=== PATIENT | male | born 1950 | race American Indian/Alaskan Native ===

== ENCOUNTER 2017-04-08 14:36 | Emergency (ER) | payer OTHER ==
[2017-04-08 15:00] VITALS: BP 159/19
[2017-04-08 15:52] LABS: Urine Drugs of Abuse Note Disclamer
[2017-04-08 16:36] LABS: Hematocrit 37.6 % (35.5-45.6); Hemoglobin 12.6 gm/dl (11.8-15.2); Mean Corpuscular HGB Conc 34 % (32-34); Mean Corpuscular Hemoglobin 30 pg (28-32); Mean Corpuscular Volume 90 fl (84-94); Platelet Count 162 K/mm3 (140-440); Red Blood Count 4.16 M/mm3 (3.65-5.03); Red Cell Distribution Width 13.2 % (13.2-15.2); White Blood Count 5.8 K/mm3 (4.5-11.0)
[2017-04-08 16:37] LABS: Diff Status Complete; Mean Platelet Volume 9.2 fl (6-12)
[2017-04-08 16:47] LABS: Bilirubin,Urine Negative (Negative); Ketones,Urine Negative (Negative)
[2017-04-08 16:48] LABS: Blood,Urine Negative (Negative); Leukocyte Esterase,Urine Negative (Negative); Nitrite,Urine Negative (Negative)
[2017-04-08 16:49] LABS: Mucus,Urine 3+ /HPF
[2017-04-08 16:52] LABS: Anion Gap 16 mmol/L; Blood Urea Nitrogen 12 mg/dL (9-20); Carbon Dioxide 28 mmol/L (22-30); Chloride 102.5 mmol/L (98-107); Potassium 3.2 mmol/L (3.6-5.0); Sodium 143 mmol/L (137-145)
[2017-04-08 16:53] LABS: Alanine Aminotransferase 16 units/L (7-56); Albumin 3.8 g/dL (3.9-5); Albumin/Globulin Ratio 1.3 %; Alkaline Phosphatase 41 units/L (35-129); Calcium 8.4 mg/dL (8.4-10.2); Glucose 91 mg/dL (75-100); Total Protein 6.7 g/dL (6.3-8.2)
[2017-04-08 16:54] LABS: Basophils % (Auto) 0.4 % (0.0-1.8)
--- NOTE | 2017-04-12 07:56 | ED Elopement Review ---
ED Pt Elopement review - Results review Lab results: Laboratory Tests 04/08/17 04/08/17 04/08/17 14:55 15:11 15:11 WBC 5.8 RBC 4.16 Hgb 12.6 Hct 37.6 MCV 90 MCH 30 MCHC 34 RDW 13.2 Plt Count 162 Lymph % (Auto) 27.0 [place] % (Auto) 7.0 Eos % (Auto) 2.0 Baso % (Auto) 0.4 Lymph # 1.5 [place] # 0.4 Eos # 0.1 Baso # 0.0 Add Manual Diff Complete Seg Neutrophils % 64.0 Seg Neutrophils # 3.7 Sodium 143 Potassium 3.2 L Chloride 102.5 Carbon Dioxide 28 Anion Gap 16 BUN 12 Creatinine 1.1 Estimated GFR > 60 BUN/Creatinine Ratio 11.00 Glucose 91 POC Glucose 86 Lactic Acid Calcium 8.4 Magnesium 1.80 Total Bilirubin 0.90 AST 21 ALT 16 Alkaline Phosphatase 41 Total Protein 6.7 Albumin 3.8 L Albumin/Globulin Ratio 1.3 TSH Urine Color Urine Turbidity Urine pH Ur Specific [place] Urine Protein Urine Glucose (UA) Urine Ketones Urine Blood Urine Nitrite Urine Bilirubin Urine Urobilinogen Ur Leukocyte Esterase Urine WBC (Auto) Urine RBC (Auto) U Epithel Cells (Auto) Urine Mucus Salicylates Urine Opiates Screen Urine Methadone Screen Acetaminophen Ur Barbiturates Screen Ur Phencyclidine Scrn Ur Amphetamines Screen U Benzodiazepines Scrn Urine Cocaine Screen U Marijuana (THC) Screen Drugs of Abuse Note Plasma/Serum Alcohol 04/08/17 04/08/17 04/08/17 15:11 15:11 15:11 WBC RBC Hgb Hct MCV MCH MCHC RDW Plt Count Lymph % (Auto) [place] % (Auto) Eos % (Auto) Baso % (Auto) Lymph # [place] # Eos # Baso # Add Manual Diff Seg Neutrophils % Seg Neutrophils # Sodium Potassium Chloride Carbon Dioxide Anion Gap BUN Creatinine Estimated GFR BUN/Creatinine Ratio Glucose POC Glucose Lactic Acid 0.50 L Calcium Magnesium Total Bilirubin AST ALT Alkaline Phosphatase Total Protein Albumin Albumin/Globulin Ratio TSH 0.899 Urine Color Urine Turbidity Urine pH Ur Specific [place] Urine Protein Urine Glucose (UA) Urine Ketones Urine Blood Urine Nitrite Urine Bilirubin Urine Urobilinogen Ur Leukocyte Esterase Urine WBC (Auto) Urine RBC (Auto) U Epithel Cells (Auto) Urine Mucus Salicylates < 0.3 L Urine Opiates Screen Urine Methadone Screen Acetaminophen Ur Barbiturates Screen Ur Phencyclidine Scrn Ur Amphetamines Screen U Benzodiazepines Scrn Urine Cocaine Screen U Marijuana (THC) Screen Drugs of Abuse Note Plasma/Serum Alcohol 04/08/17 04/08/17 04/08/17 15:11 15:11 15:31 WBC RBC Hgb Hct MCV MCH MCHC RDW Plt Count Lymph % (Auto) [place] % (Auto) Eos % (Auto) Baso % (Auto) Lymph # [place] # Eos # Baso # Add Manual Diff Seg Neutrophils % Seg Neutrophils # Sodium Potassium Chloride Carbon Dioxide Anion Gap BUN Creatinine Estimated GFR BUN/Creatinine Ratio Glucose POC Glucose Lactic Acid Calcium Magnesium Total Bilirubin AST ALT Alkaline Phosphatase Total Protein Albumin Albumin/Globulin Ratio TSH Urine Color Yellow Urine Turbidity Clear Urine pH 5.0 Ur Specific [place] 1.027 Urine Protein 30 mg/dl Urine Glucose (UA) Negative Urine Ketones Negative Urine Blood Negative Urine Nitrite Negative Urine Bilirubin Negative Urine Urobilinogen 2.0 Ur Leukocyte Esterase Negative Urine WBC (Auto) 1.0 Urine RBC (Auto) 1.0 U Epithel Cells (Auto) 1.0 Urine Mucus 3+ Salicylates Urine Opiates Screen Urine Methadone Screen Acetaminophen < 15.0 Ur Barbiturates Screen Ur Phencyclidine Scrn Ur Amphetamines Screen U Benzodiazepines Scrn Urine Cocaine Screen U Marijuana (THC) Screen Drugs of Abuse Note Plasma/Serum Alcohol < 0.01 04/08/17 04/08/17 15:31 19:54 WBC RBC Hgb Hct MCV MCH MCHC RDW Plt Count Lymph % (Auto) [place] % (Auto) Eos % (Auto) Baso % (Auto) Lymph # [place] # Eos # Baso # Add Manual Diff Seg Neutrophils % Seg Neutrophils # Sodium Potassium Chloride Carbon Dioxide Anion Gap BUN Creatinine Estimated GFR BUN/Creatinine Ratio Glucose POC Glucose Lactic Acid 0.60 L Calcium Magnesium Total Bilirubin AST ALT Alkaline Phosphatase Total Protein Albumin Albumin/Globulin Ratio TSH Urine Color Urine Turbidity Urine pH Ur Specific [place] Urine Protein Urine Glucose (UA) Urine Ketones Urine Blood Urine Nitrite Urine Bilirubin Urine Urobilinogen Ur Leukocyte Esterase Urine WBC (Auto) Urine RBC (Auto) U Epithel Cells (Auto) Urine Mucus Salicylates Urine Opiates Screen Presumptive negative Urine Methadone Screen Presumptive negative Acetaminophen Ur Barbiturates Screen Presumptive negative Ur Phencyclidine Scrn Presumptive negative Ur Amphetamines Screen Presumptive negative U Benzodiazepines Scrn Presumptive negative Urine Cocaine Screen Presumptive negative U Marijuana (THC) Screen Presumptive negative Drugs of Abuse Note Disclamer Plasma/Serum Alcohol - Call Back decision Pt Call Back Decision: Pt to F/U with PMD (HTN)
== END 2017-04-08 19:59 | disposition left against medical advice (07) ==
LOC: ED 14:36
DX: R41.82 Altered mental status, unspecified (principal); Z53.21 Procedure and treatment not carried out due to patient leaving prior to being seen by health care provider
CPT/HCPCS: 36415; 80053; 80307; 81001; 82140; 82962; 83735; 84443; 85025; 93005; 93010; G0480; 80320

== ENCOUNTER 2020-07-18 16:44 | Inpatient (IN) | payer MEDICARE, OTHER ==
[2020-07-18 17:04] LABS: Basophils # (Auto) 0.1 K/mm3 (0.0-0.1); Basophils % (Auto) 0.5 % (0.0-1.8); Hematocrit 40.7 % (35.5-45.6); Hemoglobin 13.8 gm/dl (11.8-15.2); Lymphocytes # (Auto) 0.5 K/mm3 (1.2-5.4); Lymphocytes % (Auto) 4.5 % (13.4-35.0); Mean Corpuscular HGB Conc 34 % (32-34); Mean Corpuscular Volume 89 fl (84-94); Monocytes # (Auto) 0.6 K/mm3 (0.0-0.8); Monocytes % (Auto) 5.2 % (0.0-7.3); Platelet Count 184 K/mm3 (140-440); Red Blood Count 4.57 M/mm3 (3.65-5.03); Red Cell Distribution Width 13.8 % (13.2-15.2)
--- NOTE | 2020-07-18 17:12 | Cat Scan Report ---
CT HEAD WITHOUT CONTRAST INDICATION / CLINICAL INFORMATION: neuro deficits <6hrs or sx present upon awakening. Code stroke patient TECHNIQUE: All CT scans at this location are performed using CT dose reduction for ALARA by means of automated e xposure control. COMPARISON: None available. FINDINGS: HEMORRHAGE: No evidence of intracranial hemorrhage or extra-axial fluid collection. EXTRA-AXIAL SPACES: Cortical sulci and sylvian fissures are enlarged reflecting a degree of parenchym al volume loss which is greater than expected for the patient's age of . Basilar cisterns have an unr emarkable appearance. VENTRICULAR SYSTEM: The third and lateral ventricles are enlarged reflecting presence of moderate par enchymal volume loss. CEREBRAL PARENCHYMA: Periventricular and deep white matter lucency is observed. This is probably seco ndary to microvascular ischemic change. There is no indication of recent infarction. There is evidenc e of several remote small deep infarctions in a bilateral gangliocapsular distribution. Bilateral rem ote small deep thalamic infarctions are observed. Asymmetrical physiological calcification of the bas al ganglia structures is noted. MIDLINE SHIFT OR HERNIATION: There is no mass effect. CEREBELLUM / BRAINSTEM: Decreased attenuation in the jeff likely reflects microvascular ischemic ko ge. Pontine infarction cannot be entirely excluded. MIDLINE STRUCTURES:Pituitary gland has an unremarkable appearance. No abnormalities are seen in the p ineal region. INTRACRANIAL VESSELS:Calcified atherosclerotic plaque is present along the course of the cavernous se gments of both internal carotid arteries. Similar findings are seen at the distal vertebral arteries. ORBITS: visualized portions of the orbits have an unremarkable appearance. Moderate dolichoectasia of the basilar artery is observed. SOFT TISSUES of HEAD: No significant abnormality. CALVARIUM: Evaluation of bone windows reveals no abnormalities. PARANASAL SINUSES / MASTOID AIR CELLS: Paranasal sinuses are free from inflammatory mucosal disease. Mastoid air cells are normally pneumatized. IMPRESSION: 1. Prominent parenchymal volume loss and microvascular ischemic change in excess of those expected fo r the patient's age of 69 years. 2. 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 3. No acute intracranial abnormalities are identified. 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 Signer Name: Dean Germain MD Signed: 07/18/2020 5:08 PM Workstation Name: [id number]
[2020-07-18 17:16] LABS: INR 1.1 (0.87-1.13)
[2020-07-18 17:17] LABS: Partial Thromboplastin Time 28.4 Sec. (24.2-36.6)
--- NOTE | 2020-07-18 17:19 | Emergency Department Report ---
ED Neuro Deficit HPI - General Chief Complaint: Altered Mental Status Stated Complaint: STROKE Time Seen by Provider: 07/18/20 17:05 Source: family, EMS Mode of arrival: Ambulatory Limitations: No Limitations - History of Present Illness Initial Comments: [facility] Date of Service: 07/18/2020 16:43:40 Impression: Rule Out Acute Ischemic Stroke Encephalopathy Comments/Sign-Out: John Linda is a 69 yo male with a PMH of possible SAH with obstructive hydrocephalus in the past, HTN, TIAs who p/w progressive ataxia, generalized weakness, aphasia. LNK was Tuesday AM. Limited exam, pt is nonverbal, nonfollowing commands, globally weak. CTH NAF noted, extensive chronic ischemic changes noted. He is out of the therapeutic window for consideration of ALVAREZ and alteplase (as well as possible h/o ICH). Exam suggestive of global cerebral dysfunction, cannot exclude stroke. Mechanism of Stroke: Not Clear Metrics: Last Known Well: 07/16/2020 08:00:01 [facility] Notification Time: 07/18/2020 16:43:25 Arrival Time: 07/18/2020 16:44:00 Stamp Time: 07/18/2020 16:43:40 Time First Login Attempt: 07/18/2020 16:47:25 Video Start Time: 07/18/2020 16:47:25 Symptoms: AMS, weakness NIHSS Start Assessment Time: 07/18/2020 17:00:00 Patient is not a candidate for Alteplase/Activase. Patient was not deemed candidate for Alteplase/Activase thrombolytics because of Last Well Known Above 4.5 Hours. Video End Time: 07/18/2020 17:10:13 CT head showed no acute hemorrhage or acute core infarct. ED Physician notified of diagnostic impression and management plan on 07/18/2020 17:10:15 Our recommendations are outlined below. Recommendations: Activate Stroke Protocol Admission/Order Set Stroke/Telemetry Floor Neuro Checks Bedside Swallow Eval DVT Prophylaxis IV Fluids, Normal Saline Head of Bed 30 Degrees Euglycemia and Avoid Hyperthermia (PRN Acetaminophen) Initiate Aspirin 81 MG Daily ASA 325mg vs MD dose in ED Routine Consultation with Inhouse Neurology for Follow up Care Sign Out: Discussed with Emergency Department Provider History of Present Illness: Patient is a 69 year old Male. Patient was brought by EMS for symptoms of AMS, weakness John Linda is a 69 yo male with a PMH of possible SAH with obstructive hydrocephalus in the past, HTN, TIAs who p/w progressive ataxia, generalized weakness, aphasia. LNK was Tuesday AM, 2 days prior. Per his Tuesday evening he was unable to stand per normal. She took him to [facility] he was admitted overnight. He was diagnosed with progressive dementia. Since Tuesday he has had a progressive decline with increasing weakness, aphasia, dysphagia. Febrile at home. Last seen normal was beyond 4.5 hours of presentation. Past Medical History: Examination: BP(Reviewed), NIHSS cannot be completed due to patient status. Patient/Family was informed the Neurology Consult would happen via TeleHealth consult by way of interactive audio and video telecommunications and consented to receiving care in this manner. Due to the immediate potential for life-threatening deterioration due to underlying acute neurologic illness, I spent 35 minutes providing critical care. This time includes time for face to face visit via telemedicine, review of medical records, imaging studies and discussion of findings with providers, the patient and/or family. Dr Ashlee Kwan [facility] Case [id number] -: Gradual - Related Data Allergies/Adverse Reactions: Allergies Allergy/AdvReac Type Severity Reaction Status Date / Time No Known Allergies Allergy Unverified 04/08/17 14:49 ED Review of Systems ROS: Stated complaint: STROKE Other details as noted in HPI ED Past Medical Hx - Past Medical History Previous Medical History?: Yes Hx Hypertension: Yes Additional medical history: tia - Surgical History Past Surgical History?: No - Social History Smoking Status: Unknown if ever smoked Substance Use Type: None ED Neuro Physical Exam - General Limitations: Altered Mental Status Suspected Stroke: Yes - NIHSS Assessment Interval: Baseline 1a. Level of Consciousness: resp stimuli/obtunded 1b. LOC Questions: aphasic 1c. LOC Commands: performs no tasks correctly 2. Best Gaze: normal 3. Visual: no visual loss 4. Facial Palsy: normal symmetrical movement 5b. Motor Arm Right: some gravity effort 5a. Motor Arm Left: some gravity effort 6a. Motor Leg Left: no movement 6b. Motor Leg Right: no movement 7. Limb Ataxia: absent 8. Sensory: normal 9. Best Language: mute/global aphasia 10. Dysarthria: mute/anarrthric 11. Extinction/Inattention: no abnormality (Unable to complete NIHSS) Total Score: 23 Stroke Severity: Severe Stroke ED Course Vital Signs 07/18/20 17:08 Temperature 102.7 F H Pulse Rate 120 H Respiratory 16 Rate Blood Pressure 200/125 O2 Sat by Pulse 100 Oximetry - Lab Data Result diagrams: 07/18/20 16:57 Lab Results 07/18/20 07/18/20 Range/Units 16:57 16:57 WBC 11.9 H (4.5-11.0) K/mm3 RBC 4.57 (3.65-5.03) M/mm3 Hgb 13.8 (11.8-15.2) gm/dl Hct 40.7 (35.5-45.6) % MCV 89 (84-94) fl MCH 30 (28-32) pg MCHC 34 (32-34) % RDW 13.8 (13.2-15.2) % Plt Count 184 (140-440) K/mm3 Lymph % (Auto) 4.5 L (13.4-35.0) % [place] % (Auto) 5.2 (0.0-7.3) % Eos % (Auto) 0.0 (0.0-4.3) % Baso % (Auto) 0.5 (0.0-1.8) % Lymph # 0.5 L (1.2-5.4) K/mm3 [place] # 0.6 (0.0-0.8) K/mm3 Eos # 0.0 (0.0-0.4) K/mm3 Baso # 0.1 (0.0-0.1) K/mm3 Seg Neutrophils % 89.8 H (40.0-70.0) % Seg Neutrophils # 10.6 H (1.8-7.7) K/mm3 PT 14.3 (12.2-14.9) Sec. INR 1.10 (0.87-1.13) Critical care attestation.: If time is entered above; I have spent that time in minutes in the direct care of this critically ill patient, excluding procedure time. ED Disposition Clinical Impression: AMS (altered mental status) Disposition: PAT REG,TRIAGED-NO MSE Is pt being admited?: Yes Condition: Stable
[2020-07-18] MEDS ORDERED: ACETAMINOPHEN 650 MG RECT SUPP PR ONE (17:20)
[2020-07-18] MEDS ORDERED: cefTRIAXone/NS 1 GM/50 ML 1 GM/50 ML BAG IV ONE (17:20)
[2020-07-18 17:21] LABS: BUN/Creatinine Ratio 13; Blood Urea Nitrogen 16 mg/dL (9-20); Calcium 8.6 mg/dL (8.4-10.2); Hemolysis Index 2
[2020-07-18] MEDS ORDERED: SODIUM CHLORIDE 0.9% 1000 ML 1,000 ML IV ONE (17:24)
--- NOTE | 2020-07-18 17:24 | Emergency Department Report ---
HPI - General Time Seen by Provider: 07/18/20 17:05 - HPI HPI: Room 25 The patient is a 69-year-old male present with a chief complaint of altered mental status. The patient reportedly has not been behaving like himself for the past 3 days. The patient was taken to an outside hospital and evaluated and diagnosed with a diagnosis of progression of dementia. The patient has become progressively worse since this discharge and is currently not speaking. Patient normally is able to answer questions and speak at his baseline. ED Past Medical Hx - Past Medical History Previous Medical History?: Yes Hx Hypertension: Yes Additional medical history: tia - Surgical History Past Surgical History?: No - Family History Family history: no significant - Social History Smoking Status: Unknown if ever smoked Substance Use Type: None ED Review of Systems ROS: Stated complaint: STROKE Other details as noted in HPI Comment: Unobtainable due to pts medical conditions Physical Exam - Physical Exam Vital Signs: Vital Signs 07/18/20 17:08 Temperature 102.7 F H Pulse Rate 120 H Respiratory 16 Rate Blood Pressure 200/125 O2 Sat by Pulse 100 Oximetry Physical Exam: GENERAL: The patient is well-developed well-nourished male lying on stretcher occasionally making eye contact but not speaking. [] HEENT: Normocephalic. Atraumatic. Extraocular motions are intact. Patient has moist mucous membranes. NECK: Supple. Trachea midline CHEST/LUNGS: Clear to auscultation. There is no respiratory distress noted. HEART/CARDIOVASCULAR: Regular. There is tachycardia. There is no gallop rub or murmur. ABDOMEN: Abdomen is soft, nontender. Patient has normal bowel sounds. There is no abdominal distention. SKIN: There is no rash. There is no edema. There is no diaphoresis. NEURO: The patient is awake and occasionally makes eye contact however the patient does not answer questions or follow commands. MUSCULOSKELETAL: There is no evidence of acute injury. ED Course Vital Signs 07/18/20 17:08 Temperature 102.7 F H Pulse Rate 120 H Respiratory 16 Rate Blood Pressure 200/125 O2 Sat by Pulse 100 Oximetry ED Medical Decision Making - Lab Data Result diagrams: 07/18/20 16:57 07/18/20 17:24 - Radiology Data Radiology results: report reviewed (Chest x-ray), image reviewed (Chest x-ray) interpreted by me: Chest [id number] haziness. No foreign bodies. No pneumothorax Findings [facility] [address] [place] [address] XRay Report Signed Patient: BEATRIZ ROSS MR#: [id number] 15 : 1950 Acct:[id number] Age/Sex: 69 / M ADM Date: 07/18/20 Loc: ED Attending Dr: Ordering Physician: TERRI CORBIN MD Date of Service: 07/18/20 Procedure(s): XR c hest 1V ap Accession Number(s): [id number] cc: TERRI CORBIN MD Fluoro Time In Minutes: Chest single view INDICATION: Fever IMPRESSION: Patchy bibasilar airspace opacity within both lower lung suspicious for pneumonia. Signer Name: Wilfredo Hobson MD Signed: 07/18/2020 6:28 PM Workstation Name: [id number] Transcribed By: BC Dictated By: Wilfredo Hobson MD Electronically Authenticated By: Wilfredo Hobson MD Signed Date/Time: 07/18/201827 DD/ 27 TD/TT: - Differential Diagnosis Sepsis, ICH, altered mental status Critical care attestation.: If time is entered above; I have spent that time in minutes in the direct care of this critically ill patient, excluding procedure time. ED Disposition Clinical Impression: AMS (altered mental status), Fever, Bilateral pneumonia Disposition: OP ADMIT IP TO THIS HOSP Is pt being admited?: Yes Does the pt Need Aspirin: Yes Condition: Stable Instructions: Bacterial Pneumonia (ED) Time of Disposition: 18:46 (Hospitalist paged (Dr Leach))
[2020-07-18 17:51] LABS: Alanine Aminotransferase 27 units/L (7-56); BUN/Creatinine Ratio 13; Blood Urea Nitrogen 16 mg/dL (9-20); Calcium 8.7 mg/dL (8.4-10.2)
[2020-07-18 17:52] LABS: Hemolysis Index 93
--- NOTE | 2020-07-18 18:32 | XRay Report ---
Chest single view INDICATION: Fever IMPRESSION: Patchy bibasilar airspace opacity within both lower lung suspicious for pneumonia. Signer Name: Wilfredo Hobson MD Signed: 07/18/2020 6:28 PM Workstation Name: [id number]
[2020-07-18] MEDS ORDERED: AZITHROMYCIN 500 MG in SODIUM CHLORIDE 0.9% 250ML 250 ML IV ONE (18:45)
[2020-07-18] MEDS ORDERED: ASPIRIN 300 MG RECT SUPP PR ONE (18:46)
[2020-07-18 18:58] LABS: Hematocrit 37.9 % (35.5-45.6); Hemoglobin 12.7 gm/dl (11.8-15.2); Mean Corpuscular HGB Conc 33 % (32-34); Mean Corpuscular Volume 90 fl (84-94); Platelet Count 175 K/mm3 (140-440); Red Blood Count 4.22 M/mm3 (3.65-5.03)
[2020-07-18 19:43] LABS: Basophils % (Manual) 0 % (0.0-1.8); Eosinophils % (Manual) 0 % (0.0-4.3); RBC Morphology Normal; Total Cells Counted 100
[2020-07-18 19:46] LABS: C-Reactive Protein 18.1 mg/dL (0.00-1.30)
[2020-07-18] MEDS ORDERED: ONDANSETRON 4 MG/2 ML INJ IV PRN (23:20)
[2020-07-18] MEDS ORDERED: MAGNESIUM HYDROXIDE (MOM) ORAL LIQD UDC PO PRN (23:20)
[2020-07-18] MEDS ORDERED: MORPHINE 2 MG/1 ML INJ IV PRN (23:20)
--- NOTE | 2020-07-18 23:29 | History and Physical Report ---
History of Present Illness Date of examination: 07/18/20 Date of admission: 07/18/20 21:29 Chief complaint: Altered Mental Status History of present illness: Patient is a 69-year-old male was brought in today for changes in mental status. Patient has not been his normal self over the past 3 days. He was recently seen at an outside hospital and was diagnosed with worsening dementia. His condition has gotten worse since being diagnosed with dementia and is currently become nonverbal. Most of the history was gotten from the ER physician as patient is unable to give me any good history at this time. Upon arrival in the emergency room patient was found to be tachycardic, he had a fever of about 102.7 F. Further work-up reveals bibasilar infiltrate on chest x-ray. CT scan of the head was within normal limits. Patient is being treated for pneumonia and will also be ruled out for possible COVID-19. Past History Past Medical History: hypertension, other (TIA) Past Surgical History: No surgical history Social history: no significant social history Family history: other (Unknown) Medications and Allergies Allergies Allergy/AdvReac Type Severity Reaction Status Date / Time No Known Allergies Allergy Unverified 04/08/17 14:49 Review of Systems ROS unobtainable: due to mental status Exam - Constitutional Vitals: Temp Pulse Resp BP Pulse Ox 102.7 F H 86 16 136/84 96 07/18/20 17:08 07/18/20 18:43 07/18/20 18:43 07/18/20 18:43 07/18/20 18:43 General appearance: Present: no acute distress, well-nourished - EENT Eyes: Present: PERRL, EOM intact. Absent: scleral icterus ENT: hearing intact, clear oral mucosa, dentition normal - Neck Neck: Present: supple, normal ROM - Respiratory Respiratory effort: normal Respiratory: bilateral: diminished - Cardiovascular Rhythm: regular Heart Sounds: Present: S1 & S2. Absent: gallop, systolic murmur, diastolic murmur, rub - Extremities Extremities: no ischemia, pulses intact, pulses symmetrical, No edema, Full ROM Peripheral Pulses: within normal limits - Abdominal General gastrointestinal: Present: soft, non-tender, non-distended, normal bowel sounds. Absent: mass - Integumentary Integumentary: Present: clear, warm, dry - Musculoskeletal Musculoskeletal: strength equal bilaterally - Psychiatric Psychiatric: cooperative, other (Lethargic and mildly confused.) - Neurologic Neurologic: CNII-XII intact, no focal deficits, moves all extremities HEART Score - HEART Score Troponin: Troponin T < 0.010 ng/mL (0.00-0.029) 07/18/20 16:57 Results - Labs CBC & Chem 7: 07/18/20 18:03 07/18/20 18:55 Labs: Abnormal lab results 07/18/20 07/18/20 07/18/20 Range/Units 16:57 16:57 17:24 WBC 11.9 H (4.5-11.0) K/mm3 Lymph % (Auto) 4.5 L (13.4-35.0) % Lymph # 0.5 L (1.2-5.4) K/mm3 Seg Neutrophils % 89.8 H (40.0-70.0) % Seg Neuts % (Manual) (40.0-70.0) % Lymphocytes % (Manual) (13.4-35.0) % Monocytes % (Manual) (0.0-7.3) % Seg Neutrophils # 10.6 H (1.8-7.7) K/mm3 Seg Neutrophils # Man (1.8-7.7) K/mm3 Lymphocytes # (Manual) (1.2-5.4) K/mm3 Monocytes # (Manual) (0.0-0.8) K/mm3 D-Dimer (0-234) ng/mlDDU Potassium 3.4 L (3.6-5.0) mmol/L Glucose 139 H 130 H (75-100) mg/dL POC Glucose (70-105) Ferritin (30.0-300.0) ng/mL Total Bilirubin 1.30 H (0.1-1.2) mg/dL AST 45 H (5-40) units/L Lactate Dehydrogenase (91-180) units/L C-Reactive Protein (0.00-1.30) mg/dL 07/18/20 07/18/20 07/18/20 Range/Units 17:37 18:03 18:55 WBC 13.6 H (4.5-11.0) K/mm3 Lymph % (Auto) (13.4-35.0) % Lymph # (1.2-5.4) K/mm3 Seg Neutrophils % (40.0-70.0) % Seg Neuts % (Manual) 84.0 H (40.0-70.0) % Lymphocytes % (Manual) 7.0 L (13.4-35.0) % Monocytes % (Manual) 9.0 H (0.0-7.3) % Seg Neutrophils # (1.8-7.7) K/mm3 Seg Neutrophils # Man 11.4 H (1.8-7.7) K/mm3 Lymphocytes # (Manual) 1.0 L (1.2-5.4) K/mm3 Monocytes # (Manual) 1.2 H (0.0-0.8) K/mm3 D-Dimer (0-234) ng/mlDDU Potassium (3.6-5.0) mmol/L Glucose 124 H (75-100) mg/dL POC Glucose 133 H (70-105) Ferritin (30.0-300.0) ng/mL Total Bilirubin (0.1-1.2) mg/dL AST (5-40) units/L Lactate Dehydrogenase 346 H (91-180) units/L C-Reactive Protein 18.10 H (0.00-1.30) mg/dL 07/18/20 07/18/20 Range/Units 18:55 18:55 WBC (4.5-11.0) K/mm3 Lymph % (Auto) (13.4-35.0) % Lymph # (1.2-5.4) K/mm3 Seg Neutrophils % (40.0-70.0) % Seg Neuts % (Manual) (40.0-70.0) % Lymphocytes % (Manual) (13.4-35.0) % Monocytes % (Manual) (0.0-7.3) % Seg Neutrophils # (1.8-7.7) K/mm3 Seg Neutrophils # Man (1.8-7.7) K/mm3 Lymphocytes # (Manual) (1.2-5.4) K/mm3 Monocytes # (Manual) (0.0-0.8) K/mm3 D-Dimer > 27496 H (0-234) ng/mlDDU Potassium (3.6-5.0) mmol/L Glucose (75-100) mg/dL POC Glucose (70-105) Ferritin 899.4 H (30.0-300.0) ng/mL Total Bilirubin (0.1-1.2) mg/dL AST (5-40) units/L Lactate Dehydrogenase (91-180) units/L C-Reactive Protein (0.00-1.30) mg/dL Assessment and Plan - Patient Problems (1) Bilateral pneumonia Current Visit: Yes Status: Acute Plan to address problem: Patient placed on empiric IV antibiotics. We await blood culture result. (2) AMS (altered mental status) Current Visit: Yes Status: Acute Plan to address problem: Possibly secondary to the underlying pneumonia. Patient also has a baseline history of dementia. We will continue to monitor mental status. (3) Suspected 2019 novel coronavirus infection Current Visit: Yes Status: Acute Plan to address problem: Patient placed on isolation precautions. We will place a consult to infectious disease for evaluation and recommendation. (4) DVT prophylaxis Current Visit: Yes Status: Acute Plan to address problem: Patient placed on subcutaneous heparin. (5) Full code status Current Visit: Yes Status: Acute
[2020-07-19] MEDS: SODIUM CHLORIDE 0.9% 1000 ML 1,000 ML IV SCH ×2 (02:18→13:21)
[2020-07-19 06:00] LABS: INR 1.21 (0.87-1.13)
[2020-07-19 06:02] LABS: Basophils % (Auto) 0.2 % (0.0-1.8); Hematocrit 37.5 % (35.5-45.6); Hemoglobin 12.6 gm/dl (11.8-15.2); Lymphocytes # (Auto) 1.1 K/mm3 (1.2-5.4); Lymphocytes % (Auto) 9.7 % (13.4-35.0); Mean Corpuscular HGB Conc 34 % (32-34); Mean Corpuscular Volume 90 fl (84-94); Monocytes # (Auto) 0.9 K/mm3 (0.0-0.8); Monocytes % (Auto) 7.5 % (0.0-7.3); Platelet Count 140 K/mm3 (140-440); Red Blood Count 4.18 M/mm3 (3.65-5.03); Red Cell Distribution Width 13.8 % (13.2-15.2)
[2020-07-19 07:04] LABS: BUN/Creatinine Ratio 14; Blood Urea Nitrogen 14 mg/dL (9-20); Hemolysis Index 7
[2020-07-19] MEDS ORDERED: AZITHROMYCIN 500 MG in SODIUM CHLORIDE 0.9% 250ML 250 ML IV SCH (10:00)
[2020-07-19] MEDS: cefTRIAXone/NS 2 GM/100 ML 2 GM/100 ML BAG IV SCH (10:43)
[2020-07-19] MEDS: HEPARIN 5,000 UNIT/1 ML VIAL SUB-Q SCH ×2 (13:20→22:05)
--- NOTE | 2020-07-19 13:35 | Progress Note ---
Assessment and Plan Assessment and plan: -- Bilateral pneumonia Current Visit: Yes Status: Acute Plan to address problem: Patient placed on empiric IV antibiotics. We await blood culture result. -- AMS (altered mental status) Current Visit: Yes Status: Acute Plan to address problem: Possibly secondary to the underlying pneumonia. Patient also has a baseline history of dementia. We will continue to monitor mental status. -- Suspected 2019 novel coronavirus infection Current Visit: Yes Status: Acute Plan to address problem: Patient placed on isolation precautions. We will place a consult to infectious disease for evaluation and recommendation. -- DVT prophylaxis Current Visit: Yes Status: Acute Plan to address problem: Patient placed on subcutaneous heparin. -- Full code status Current Visit: Yes Status: Acute History Interval history: I have seen and examined the patient in isolation room Isolation precautions, PPE protocols followed Patient complains of generalized weakness Mild shortness of breath Vital signs noted Hospitalist Physical - Constitutional Vitals: Temp Pulse Resp BP Pulse Ox 98.9 F 84 20 139/92 96 07/19/20 11:15 07/19/20 11:15 07/19/20 11:15 07/19/20 11:15 07/19/20 11:15 General appearance: Present: no acute distress, well-nourished - EENT Eyes: Present: PERRL, EOM intact - Neck Neck: Present: supple, normal ROM - Respiratory Respiratory effort: normal Respiratory: bilateral: diminished, negative: rales, rhonchi, wheezing - Cardiovascular Rhythm: regular Heart Sounds: Present: S1 & S2 - Extremities Extremities: no ischemia, No edema Peripheral Pulses: within normal limits - Abdominal General gastrointestinal: soft, non-tender, non-distended, normal bowel sounds - Integumentary Integumentary: Present: clear, warm - Psychiatric Psychiatric: appropriate mood/affect, cooperative - Neurologic Neurologic: CNII-XII intact, moves all extremities HEART Score - HEART Score Troponin: Troponin T < 0.010 ng/mL (0.00-0.029) 07/18/20 16:57 Results - Labs CBC & Chem 7: 07/19/20 04:37 07/19/20 04:37 Labs: Laboratory Last Values WBC 11.9 K/mm3 (4.5-11.0) H 07/19/20 04:37 RBC 4.18 M/mm3 (3.65-5.03) 07/19/20 04:37 Hgb 12.6 gm/dl (11.8-15.2) 07/19/20 04:37 Hct 37.5 % (35.5-45.6) 07/19/20 04:37 MCV 90 fl (84-94) 07/19/20 04:37 MCH 30 pg (28-32) 07/19/20 04:37 MCHC 34 % (32-34) 07/19/20 04:37 RDW 13.8 % (13.2-15.2) 07/19/20 04:37 Plt Count 140 K/mm3 (140-440) 07/19/20 04:37 Lymph % (Auto) 9.7 % (13.4-35.0) L 07/19/20 04:37 [place] % (Auto) 7.5 % (0.0-7.3) H 07/19/20 04:37 Eos % (Auto) 0.0 % (0.0-4.3) 07/19/20 04:37 Baso % (Auto) 0.2 % (0.0-1.8) 07/19/20 04:37 Lymph # 1.1 K/mm3 (1.2-5.4) L 07/19/20 04:37 [place] # 0.9 K/mm3 (0.0-0.8) H 07/19/20 04:37 Eos # 0.0 K/mm3 (0.0-0.4) 07/19/20 04:37 Baso # 0.0 K/mm3 (0.0-0.1) 07/19/20 04:37 Add Manual Diff Complete 07/18/20 18:03 Total Counted 100 07/18/20 18:03 Seg Neutrophils % 82.6 % (40.0-70.0) H 07/19/20 04:37 Seg Neuts % (Manual) 84.0 % (40.0-70.0) H 07/18/20 18:03 Band Neutrophils % 0 % 07/18/20 18:03 Lymphocytes % (Manual) 7.0 % (13.4-35.0) L 07/18/20 18:03 Reactive Lymphs % (Man) 0 % 07/18/20 18:03 Monocytes % (Manual) 9.0 % (0.0-7.3) H 07/18/20 18:03 Eosinophils % (Manual) 0 % (0.0-4.3) 07/18/20 18:03 Basophils % (Manual) 0 % (0.0-1.8) 07/18/20 18:03 Metamyelocytes % 0 % 07/18/20 18:03 Myelocytes % 0 % 07/18/20 18:03 Promyelocytes % 0 % 07/18/20 18:03 Blast Cells % 0 % 07/18/20 18:03 Nucleated RBC % Not Reportable 07/18/20 18:03 Seg Neutrophils # 9.8 K/mm3 (1.8-7.7) H 07/19/20 04:37 Seg Neutrophils # Man 11.4 K/mm3 (1.8-7.7) H 07/18/20 18:03 Band Neutrophils # 0.0 K/mm3 07/18/20 18:03 Lymphocytes # (Manual) 1.0 K/mm3 (1.2-5.4) L 07/18/20 18:03 Abs React Lymphs (Man) 0.0 K/mm3 07/18/20 18:03 Monocytes # (Manual) 1.2 K/mm3 (0.0-0.8) H 07/18/20 18:03 Eosinophils # (Manual) 0.0 K/mm3 (0.0-0.4) 07/18/20 18:03 Basophils # (Manual) 0.0 K/mm3 (0.0-0.1) 07/18/20 18:03 Metamyelocytes # 0.0 K/mm3 07/18/20 18:03 Myelocytes # 0.0 K/mm3 07/18/20 18:03 Promyelocytes # 0.0 K/mm3 07/18/20 18:03 Blast Cells # 0.0 K/mm3 07/18/20 18:03 WBC Morphology Not Reportable 07/18/20 18:03 Hypersegmented Neuts Not Reportable 07/18/20 18:03 Hyposegmented Neuts Not Reportable 07/18/20 18:03 Hypogranular Neuts Not Reportable 07/18/20 18:03 Smudge Cells Not Reportable 07/18/20 18:03 Toxic Granulation Not Reportable 07/18/20 18:03 Toxic Vacuolation Not Reportable 07/18/20 18:03 Dohle Bodies Not Reportable 07/18/20 18:03 Pelger-Huet Anomaly Not Reportable 07/18/20 18:03 Sarah Rods Not Reportable 07/18/20 18:03 Platelet Estimate Not Reportable 07/18/20 18:03 Clumped Platelets Not Reportable 07/18/20 18:03 Plt Clumps, EDTA Not Reportable 07/18/20 18:03 Large Platelets Not Reportable 07/18/20 18:03 Giant Platelets Not Reportable 07/18/20 18:03 Platelet Satelliting Not Reportable 07/18/20 18:03 Plt Morphology Comment Not Reportable 07/18/20 18:03 RBC Morphology Normal 07/18/20 18:03 Dimorphic RBCs Not Reportable 07/18/20 18:03 Polychromasia Not Reportable 07/18/20 18:03 Hypochromasia Not Reportable 07/18/20 18:03 Poikilocytosis Not Reportable 07/18/20 18:03 Anisocytosis Not Reportable 07/18/20 18:03 Microcytosis Not Reportable 07/18/20 18:03 Macrocytosis Not Reportable 07/18/20 18:03 Spherocytes Not Reportable 07/18/20 18:03 Pappenheimer Bodies Not Reportable 07/18/20 18:03 Sickle Cells Not Reportable 07/18/20 18:03 Target Cells Not Reportable 07/18/20 18:03 Tear Drop Cells Not Reportable 07/18/20 18:03 Ovalocytes Not Reportable 07/18/20 18:03 Helmet Cells Not Reportable 07/18/20 18:03 [place] Bodies Not Reportable 07/18/20 18:03 [place] Rings Not Reportable 07/18/20 18:03 [place] Cells Not Reportable 07/18/20 18:03 Bite Cells Not Reportable 07/18/20 18:03 Crenated Cell Not Reportable 07/18/20 18:03 Elliptocytes Not Reportable 07/18/20 18:03 Acanthocytes (Spur) Not Reportable 07/18/20 18:03 Rouleaux Not Reportable 07/18/20 18:03 Hemoglobin C Crystals Not Reportable 07/18/20 18:03 Schistocytes Not Reportable 07/18/20 18:03 Malaria parasites Not Reportable 07/18/20 18:03 Clarence Bodies Not Reportable 07/18/20 18:03 Hem Pathologist Commnt No 07/18/20 18:03 PT 15.5 Sec. (12.2-14.9) H 07/19/20 04:37 INR 1.21 (0.87-1.13) H 07/19/20 04:37 APTT 28.4 Sec. (24.2-36.6) 07/18/20 16:57 Thrombin Time 15.2 Sec. (15.1-19.6) 07/18/20 16:57 D-Dimer > 78873 ng/mlDDU (0-234) H 07/18/20 18:55 Sodium 141 mmol/L (137-145) 07/19/20 04:37 Potassium 3.5 mmol/L (3.6-5.0) L 07/19/20 04:37 Chloride 103.7 mmol/L (98-107) 07/19/20 04:37 Carbon Dioxide 22 mmol/L (22-30) 07/19/20 04:37 Anion Gap 19 mmol/L 07/19/20 04:37 BUN 14 mg/dL (9-20) 07/19/20 04:37 Creatinine 1.0 mg/dL (0.8-1.3) 07/19/20 04:37 Estimated GFR > 60 ml/min 07/19/20 04:37 BUN/Creatinine Ratio 14 % 07/19/20 04:37 Glucose 119 mg/dL (75-100) H 07/19/20 04:37 POC Glucose 133 (70-105) H 07/18/20 17:37 Lactic Acid 1.30 mmol/L (0.7-2.0) 07/18/20 20:47 Calcium 8.0 mg/dL (8.4-10.2) L 07/19/20 04:37 Ferritin 899.4 ng/mL (30.0-300.0) H 07/18/20 18:55 Total Bilirubin 1.30 mg/dL (0.1-1.2) H 07/18/20 17:24 AST 45 units/L (5-40) H 07/18/20 17:24 ALT 27 units/L (7-56) 07/18/20 17:24 Alkaline Phosphatase 63 units/L (35-129) 07/18/20 17:24 Lactate Dehydrogenase 346 units/L (91-180) H 07/18/20 18:55 Troponin T < 0.010 ng/mL (0.00-0.029) 07/18/20 16:57 C-Reactive Protein 18.10 mg/dL (0.00-1.30) H 07/18/20 18:55 Total Protein 7.8 g/dL (6.3-8.2) 07/18/20 17:24 Albumin 4.0 g/dL (3.9-5) 07/18/20 17:24 Albumin/Globulin Ratio 1.1 % 07/18/20 17:24 Procalcitonin 0.32 ng/mL (<0.15) 07/18/20 18:55 Microbiology: Microbiology 07/18/20 17:24 Peripheral/Venous Blood Culture - Preliminary Culture in Progress 07/18/20 17:29 Peripheral/Venous Blood Culture - Preliminary Culture in Progress Mckeon/IV: Voiding Method Diaper IV Catheter Type [Right Peripheral IV Forearm] Active Medications - Current Medications Current Medications: Generic Name Dose Route Start Last Admin Trade Name Freq PRN Reason Stop Dose Admin Acetaminophen 650 mg 07/18/20 23:20 Tylenol PO Q4H PRN Pain MILD(1-3)/Fever >100.5/BRANTLEY Heparin Sodium (Porcine) 5,000 unit 07/19/20 06:00 07/19/20 13:20 Heparin SUB-Q 5,000 unit Q8HR DAREN Administration Sodium Chloride 1,000 mls @ 75 mls/hr 07/18/20 23:30 07/19/20 13:21 Nacl 0.9% 1000 Ml IV 75 mls/hr DIRECT DAREN Administration Ceftriaxone Sodium 2 gm in 100 mls @ 200 mls/hr 07/19/20 10:00 07/19/20 10:43 Rocephin/Ns 2 Gm/100 Ml IV 200 mls/hr Q24HR DAREN Administration Protocol Azithromycin 500 mg/ Sodium 250 mls @ 250 mls/hr 07/19/20 10:00 07/19/20 10:43 Chloride IV 250 mls/hr Q24HR DAREN Administration Protocol Magnesium Hydroxide 30 ml 08/28/20 23:20 Milk Of Magnesia PO Q4H PRN Constipation Morphine Sulfate 2 mg 07/18/20 23:20 Morphine IV Q4H PRN Pain, Moderate (4-6) Ondansetron HCl 4 mg 07/18/20 23:20 Zofran IV Q8H PRN Nausea And Vomiting Sodium Chloride 10 ml 07/19/20 10:00 07/19/20 10:44 Sodium Chloride Flush Syringe 10 Ml IV 10 ml BID DAREN Administration Sodium Chloride 10 ml 07/18/20 23:20 Sodium Chloride Flush Syringe 10 Ml IV PRN PRN LINE FLUSH
[2020-07-20] MEDS: SODIUM CHLORIDE 0.9% 1000 ML 1,000 ML IV SCH (05:35)
[2020-07-20] MEDS: HEPARIN 5,000 UNIT/1 ML VIAL SUB-Q SCH (05:36)
--- NOTE | 2020-07-20 08:58 | Progress Note ---
Assessment and Plan Assessment and plan: --Covid-19 test Negative[07/19/20] --Elevated d dimers, Current Visit: Yes Status: Acute Plan to address problem: Lovenox 0.5mg/kg wt q 12hr CTA chest to evaluate for PE -- Bilateral pneumonia Current Visit: Yes Status: Acute Plan to address problem: Patient placed on empiric IV antibiotics. Follow blood cultures -- AMS (altered mental status) Current Visit: Yes Status: Acute Plan to address problem: Possibly secondary to the underlying pneumonia. Patient also has a baseline history of dementia. We will continue to monitor mental status. -- Suspected 2019 novel / Test negative Patient placed on isolation precautions. ID consulted,inflammatory markers high trend the markers -- DVT prophylaxis Current Visit: Yes Status: Acute Plan to address problem: Patient placed on subcutaneous heparin. -- Full code status Current Visit: Yes Status: Acute We will closely monitor the patient and adjust management as needed Follow consultants recommendations History Interval history: I have seen and examined the patient at the bedside Patient feels slightly better, denies any chest pain or shortness of breath Vital signs reviewed Hospitalist Physical - Constitutional Vitals: Temp Pulse Resp BP Pulse Ox 99.0 F 75 32 H 173/103 94 07/20/20 04:40 07/20/20 05:34 07/20/20 04:40 07/20/20 05:34 07/20/20 04:40 General appearance: Present: no acute distress, well-nourished - EENT Eyes: Present: PERRL, EOM intact - Neck Neck: Present: supple, normal ROM - Respiratory Respiratory effort: normal Respiratory: bilateral: diminished, rhonchi, negative: rales, wheezing - Cardiovascular Rhythm: regular Heart Sounds: Present: S1 & S2 - Extremities Extremities: no ischemia, No edema - Abdominal General gastrointestinal: soft, non-tender, non-distended, normal bowel sounds - Integumentary Integumentary: Present: clear, warm - Psychiatric Psychiatric: appropriate mood/affect, cooperative - Neurologic Neurologic: moves all extremities HEART Score - HEART Score Troponin: Troponin T < 0.010 ng/mL (0.00-0.029) 07/18/20 16:57 Results - Labs CBC & Chem 7: 07/19/20 04:37 07/19/20 04:37 Labs: Laboratory Last Values WBC 11.9 K/mm3 (4.5-11.0) H 07/19/20 04:37 RBC 4.18 M/mm3 (3.65-5.03) 07/19/20 04:37 Hgb 12.6 gm/dl (11.8-15.2) 07/19/20 04:37 Hct 37.5 % (35.5-45.6) 07/19/20 04:37 MCV 90 fl (84-94) 07/19/20 04:37 MCH 30 pg (28-32) 07/19/20 04:37 MCHC 34 % (32-34) 07/19/20 04:37 RDW 13.8 % (13.2-15.2) 07/19/20 04:37 Plt Count 140 K/mm3 (140-440) 07/19/20 04:37 Lymph % (Auto) 9.7 % (13.4-35.0) L 07/19/20 04:37 [place] % (Auto) 7.5 % (0.0-7.3) H 07/19/20 04:37 Eos % (Auto) 0.0 % (0.0-4.3) 07/19/20 04:37 Baso % (Auto) 0.2 % (0.0-1.8) 07/19/20 04:37 Lymph # 1.1 K/mm3 (1.2-5.4) L 07/19/20 04:37 [place] # 0.9 K/mm3 (0.0-0.8) H 07/19/20 04:37 Eos # 0.0 K/mm3 (0.0-0.4) 07/19/20 04:37 Baso # 0.0 K/mm3 (0.0-0.1) 07/19/20 04:37 Add Manual Diff Complete 07/18/20 18:03 Total Counted 100 07/18/20 18:03 Seg Neutrophils % 82.6 % (40.0-70.0) H 07/19/20 04:37 Seg Neuts % (Manual) 84.0 % (40.0-70.0) H 07/18/20 18:03 Band Neutrophils % 0 % 07/18/20 18:03 Lymphocytes % (Manual) 7.0 % (13.4-35.0) L 07/18/20 18:03 Reactive Lymphs % (Man) 0 % 07/18/20 18:03 Monocytes % (Manual) 9.0 % (0.0-7.3) H 07/18/20 18:03 Eosinophils % (Manual) 0 % (0.0-4.3) 07/18/20 18:03 Basophils % (Manual) 0 % (0.0-1.8) 07/18/20 18:03 Metamyelocytes % 0 % 07/18/20 18:03 Myelocytes % 0 % 07/18/20 18:03 Promyelocytes % 0 % 07/18/20 18:03 Blast Cells % 0 % 07/18/20 18:03 Nucleated RBC % Not Reportable 07/18/20 18:03 Seg Neutrophils # 9.8 K/mm3 (1.8-7.7) H 07/19/20 04:37 Seg Neutrophils # Man 11.4 K/mm3 (1.8-7.7) H 07/18/20 18:03 Band Neutrophils # 0.0 K/mm3 07/18/20 18:03 Lymphocytes # (Manual) 1.0 K/mm3 (1.2-5.4) L 07/18/20 18:03 Abs React Lymphs (Man) 0.0 K/mm3 07/18/20 18:03 Monocytes # (Manual) 1.2 K/mm3 (0.0-0.8) H 07/18/20 18:03 Eosinophils # (Manual) 0.0 K/mm3 (0.0-0.4) 07/18/20 18:03 Basophils # (Manual) 0.0 K/mm3 (0.0-0.1) 07/18/20 18:03 Metamyelocytes # 0.0 K/mm3 07/18/20 18:03 Myelocytes # 0.0 K/mm3 07/18/20 18:03 Promyelocytes # 0.0 K/mm3 07/18/20 18:03 Blast Cells # 0.0 K/mm3 07/18/20 18:03 WBC Morphology Not Reportable 07/18/20 18:03 Hypersegmented Neuts Not Reportable 07/18/20 18:03 Hyposegmented Neuts Not Reportable 07/18/20 18:03 Hypogranular Neuts Not Reportable 07/18/20 18:03 Smudge Cells Not Reportable 07/18/20 18:03 Toxic Granulation Not Reportable 07/18/20 18:03 Toxic Vacuolation Not Reportable 07/18/20 18:03 Dohle Bodies Not Reportable 07/18/20 18:03 Pelger-Huet Anomaly Not Reportable 07/18/20 18:03 Sarah Rods Not Reportable 07/18/20 18:03 Platelet Estimate Not Reportable 07/18/20 18:03 Clumped Platelets Not Reportable 07/18/20 18:03 Plt Clumps, EDTA Not Reportable 07/18/20 18:03 Large Platelets Not Reportable 07/18/20 18:03 Giant Platelets Not Reportable 07/18/20 18:03 Platelet Satelliting Not Reportable 07/18/20 18:03 Plt Morphology Comment Not Reportable 07/18/20 18:03 RBC Morphology Normal 07/18/20 18:03 Dimorphic RBCs Not Reportable 07/18/20 18:03 Polychromasia Not Reportable 07/18/20 18:03 Hypochromasia Not Reportable 07/18/20 18:03 Poikilocytosis Not Reportable 07/18/20 18:03 Anisocytosis Not Reportable 07/18/20 18:03 Microcytosis Not Reportable 07/18/20 18:03 Macrocytosis Not Reportable 07/18/20 18:03 Spherocytes Not Reportable 07/18/20 18:03 Pappenheimer Bodies Not Reportable 07/18/20 18:03 Sickle Cells Not Reportable 07/18/20 18:03 Target Cells Not Reportable 07/18/20 18:03 Tear Drop Cells Not Reportable 07/18/20 18:03 Ovalocytes Not Reportable 07/18/20 18:03 Helmet Cells Not Reportable 07/18/20 18:03 [place] Bodies Not Reportable 07/18/20 18:03 [place] Rings Not Reportable 07/18/20 18:03 [place] Cells Not Reportable 07/18/20 18:03 Bite Cells Not Reportable 07/18/20 18:03 Crenated Cell Not Reportable 07/18/20 18:03 Elliptocytes Not Reportable 07/18/20 18:03 Acanthocytes (Spur) Not Reportable 07/18/20 18:03 Rouleaux Not Reportable 07/18/20 18:03 Hemoglobin C Crystals Not Reportable 07/18/20 18:03 Schistocytes Not Reportable 07/18/20 18:03 Malaria parasites Not Reportable 07/18/20 18:03 [place] Bodies Not Reportable 07/18/20 18:03 Hem Pathologist Commnt No 07/18/20 18:03 PT 15.5 Sec. (12.2-14.9) H 07/19/20 04:37 INR 1.21 (0.87-1.13) H 07/19/20 04:37 APTT 28.4 Sec. (24.2-36.6) 07/18/20 16:57 Thrombin Time 15.2 Sec. (15.1-19.6) 07/18/20 16:57 D-Dimer > 89904 ng/mlDDU (0-234) H 07/18/20 18:55 Sodium 141 mmol/L (137-145) 07/19/20 04:37 Potassium 3.5 mmol/L (3.6-5.0) L 07/19/20 04:37 Chloride 103.7 mmol/L (98-107) 07/19/20 04:37 Carbon Dioxide 22 mmol/L (22-30) 07/19/20 04:37 Anion Gap 19 mmol/L 07/19/20 04:37 BUN 14 mg/dL (9-20) 07/19/20 04:37 Creatinine 1.0 mg/dL (0.8-1.3) 07/19/20 04:37 Estimated GFR > 60 ml/min 07/19/20 04:37 BUN/Creatinine Ratio 14 % 07/19/20 04:37 Glucose 119 mg/dL (75-100) H 07/19/20 04:37 POC Glucose 133 (70-105) H 07/18/20 17:37 Lactic Acid 1.30 mmol/L (0.7-2.0) 07/18/20 20:47 Calcium 8.0 mg/dL (8.4-10.2) L 07/19/20 04:37 Ferritin 899.4 ng/mL (30.0-300.0) H 07/18/20 18:55 Total Bilirubin 1.30 mg/dL (0.1-1.2) H 07/18/20 17:24 AST 45 units/L (5-40) H 07/18/20 17:24 ALT 27 units/L (7-56) 07/18/20 17:24 Alkaline Phosphatase 63 units/L (35-129) 07/18/20 17:24 Lactate Dehydrogenase 346 units/L (91-180) H 07/18/20 18:55 Troponin T < 0.010 ng/mL (0.00-0.029) 07/18/20 16:57 C-Reactive Protein 18.10 mg/dL (0.00-1.30) H 07/18/20 18:55 Total Protein 7.8 g/dL (6.3-8.2) 07/18/20 17:24 Albumin 4.0 g/dL (3.9-5) 07/18/20 17:24 Albumin/Globulin Ratio 1.1 % 07/18/20 17:24 Procalcitonin 0.32 ng/mL (<0.15) 07/18/20 18:55 Coronavirus (PCR) Negative (Negative) 07/19/20 Unknown Microbiology: Microbiology 07/18/20 17:24 Peripheral/Venous Blood Culture - Preliminary NO GROWTH AFTER 24 HOURS 07/18/20 17:29 Peripheral/Venous Blood Culture - Preliminary NO GROWTH AFTER 24 HOURS Mckeon/IV: Voiding Method Incontinent IV Catheter Type [Right Peripheral IV Forearm] Active Medications - Current Medications Current Medications: Generic Name Dose Route Start Last Admin Trade Name Freq PRN Reason Stop Dose Admin Acetaminophen 650 mg 07/18/20 23:20 Tylenol PO Q4H PRN Pain MILD(1-3)/Fever >100.5/BRANTLEY Azithromycin 500 mg 07/20/20 10:00 Zithromax PO QDAY DAREN Heparin Sodium (Porcine) 5,000 unit 07/19/20 06:00 07/20/20 05:36 Heparin SUB-Q 5,000 unit Q8HR DAREN Administration Sodium Chloride 1,000 mls @ 75 mls/hr 07/18/20 23:30 07/20/20 05:35 Nacl 0.9% 1000 Ml IV 75 mls/hr DIRECT DAREN Administration Ceftriaxone Sodium 2 gm in 100 mls @ 200 mls/hr 07/19/20 10:00 07/19/20 10:43 Rocephin/Ns 2 Gm/100 Ml IV 200 mls/hr Q24HR DAREN Administration Protocol Labetalol HCl 10 mg 07/20/20 05:16 07/20/20 05:34 Labetalol IV 10 mg Q8HR PRN Administration Hypertension Magnesium Hydroxide 30 ml 07/18/20 23:20 Milk Of Magnesia PO Q4H PRN Constipation Morphine Sulfate 2 mg 07/18/20 23:20 Morphine IV Q4H PRN Pain, Moderate (4-6) Ondansetron HCl 4 mg 07/18/20 23:20 Zofran IV Q8H PRN Nausea And Vomiting Sodium Chloride 10 ml 07/19/20 10:00 07/19/20 21:51 Sodium Chloride Flush Syringe 10 Ml IV 10 ml BID DAREN Administration Sodium Chloride 10 ml 07/18/20 23:20 Sodium Chloride Flush Syringe 10 Ml IV PRN PRN LINE FLUSH
[2020-07-20] MEDS ORDERED: ENOXAPARIN 60 MG/0.6 ML INJ SUB-Q SCH (10:00)
--- NOTE | 2020-07-20 11:12 | Cat Scan Report ---
CTA CHEST WITH IV CONTRAST INDICATION: elevated d dimers/SOB/Covid neg. TECHNIQUE: Axial CT images were obtained through the chest after injection of 100 cc Omni 350 IV contrast. 3 delfino ne MIP reconstructions were produced. All CT scans at this location are performed using CT dose reduc tion for ALARA by means of automated exposure control. COMPARISON: None available. FINDINGS: PULMONARY ARTERIES: Thin saddle embolus straddling both right and left pulmonary arteries with large acute filling defects within left upper lobe, right upper lobe are and right lower lobar pulmonary ar teries with multiple segmental PTE as well THORACIC AORTA: Ectatic 4 cm mid ascending thoracic aorta. No dissection HEART: Normal. CORONARY ARTERIES: No significant calcification. PLEURA: No pleural effusion. No pneumothorax. LYMPH NODES: No significant adenopathy. LUNGS: No acute air space or interstitial disease. Bibasilar dependent and linear atelectasis ADDITIONAL FINDINGS: None. UPPER ABDOMEN: No acute findings. SKELETAL STRUCTURES: No significant osseous abnormality. IMPRESSION: 1. Acute large saddle embolus. No CTA evidence for right heart strain CRITICAL RESULT: Time of Discovery: 10:00 AM CDT 07/20/2020 Time of Communication: 10:06 AM Licensed Practitioner Receiving Report: Nurse Godinez Read Back Performed: Yes. Signer Name: Moisés Finley MD Signed: 07/20/2020 11:08 AM Workstation Name: [id number]
[2020-07-20] MEDS ORDERED: HEPARIN 10,000 UNITS/10 ML VIAL IV ONE (11:42)
[2020-07-20] MEDS: AZITHROMYCIN 250 MG TAB PO SCH ×3 (11:49→12:56)
[2020-07-20] MEDS: cefTRIAXone/NS 2 GM/100 ML 2 GM/100 ML BAG IV SCH (11:49)
--- NOTE | 2020-07-20 11:49 | Event Note ---
Date: 07/20/20 Patient had CTA chest for elevated D-dimers to rule out PE Reported large saddle thrombus, Patient hemodynamically stable Saturating 94% on 3 L of oxygen Denies chest pain or shortness of breath Will start heparin drip Place him n.p.o. status Patient's O2 sat more than 94% on 3 L oxygen Consult vascular/IR and discussed with Dr. Murry For possible EKOS procedure Plan of care reviewed with the patient and the nurse; Total critical care time 35 minutes
--- NOTE | 2020-07-20 12:23 | Event Note ---
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 Initial CT head negate for acute process. Pt noted to have infiltrates on CXR and elevated D-dimer ordered and noted to be elevated. CTA Chest demonstrates pulmonary emblous with thin band creating a saddle embolus. Perfusion noted to pulmonary arteries with no evidence of right heart strain. Patient is maintaing his O2 sats on 3L BNC. Given the patients history of SAH and progression in mental decline without etiology, the patient would not be a candidate for EKOS directed thrombolytics. Recommend continued heparin drip. A repeat CT head will be ordered. A BLE venous duplex will be ordered. Recommend cardiology consult with ECHO as well.
[2020-07-20] MEDS: ACETAMINOPHEN 325 MG TAB PO PRN ×2 (12:56→23:05)
--- NOTE | 2020-07-20 12:56 | Consultation ---
History of Present Illness - Reason for Consult Consult date: 07/20/20 - History of Present Illness Patient is a 69-year-old male was brought in today for changes in mental status. Patient has not been his normal self over the past 3 days. He was recently seen at an outside hospital and was diagnosed with worsening dementia. His condition has gotten worse since being diagnosed with dementia and is currently become nonverbal. Most of the history was gotten from the ER physician as patient is unable to give me any good history at this time. Upon arrival in the emergency room patient was found to be tachycardic, he had a fever of about 102.7 F. Further work-up reveals bibasilar infiltrate on chest x-ray. CT scan of the head was within normal limits. Patient is being treated for pneumonia and will also be ruled out for possible COVID-19. Past History Past Medical History: hypertension, other (TIA) Past Surgical History: No surgical history Social history: no significant social history Family history: other (Unknown) SAH presented with progression in mental decline. Initial CT head negate for acute process. Pt noted to have infiltrates on CXR and elevated D-dimer ordered and noted to be elevated. CTA Chest demonstrates pulmonary emblous with thin band creating a saddle embolus. Perfusion noted to pulmonary arteries with no evidence of right heart strain. Patient is maintaing his O2 sats on 3L BNC. Given the patients history of SAH and progression in mental decline without etiology, the patient would not be a candidate for EKOS directed thrombolytics. Recommend continued heparin drip. A repeat CT head will be ordered. A BLE venous duplex will be ordered. Recommend cardiology consult with ECHO as well. Past History Past Medical History: hypertension, other (TIA) Past Surgical History: No surgical history Social history: no significant social history Family history: other (Unknown) Medications and Allergies Allergies Allergy/AdvReac Type Severity Reaction Status Date / Time No Known Allergies Allergy Unverified 04/08/17 14:49 Home Medications Medication Instructions Recorded Confirmed Last Taken Type No Known Home Medications [No 07/19/20 07/19/20 Unknown History Reported Home Medications] Active Meds: Active Medications Acetaminophen (Tylenol) 650 mg PO Q4H PRN PRN Reason: Pain MILD(1-3)/Fever >100.5/BRANTLEY Last Admin: 07/20/20 12:56 Dose: 650 mg Documented by: Azithromycin (Zithromax) 500 mg PO QDAY [facility] Last Admin: 07/20/20 12:56 Dose: 500 mg Documented by: Sodium Chloride (Nacl 0.9% 1000 Ml) 1,000 mls @ 75 mls/hr IV DIRECT [facility] Last Admin: 07/20/20 05:35 Dose: 75 mls/hr Documented by: Ceftriaxone Sodium (Rocephin/Ns 2 Gm/100 Ml) 2 gm in 100 mls @ 200 mls/hr IV Q24HR [facility]; Protocol Last Admin: 07/20/20 11:49 Dose: 200 mls/hr Documented by: Heparin Sodium/Sodium Chloride (Heparin/ 0.45% Nacl-25,000 Unit/500 Ml) 25,000 unit in 500 mls @ 29 mls/hr IV TITR [facility]; Protocol Labetalol HCl (Labetalol) 10 mg IV Q8HR PRN PRN Reason: Hypertension Last Admin: 07/20/20 05:34 Dose: 10 mg Documented by: Magnesium Hydroxide (Milk Of Magnesia) 30 ml PO Q4H PRN PRN Reason: Constipation Morphine Sulfate (Morphine) 2 mg IV Q4H PRN PRN Reason: Pain, Moderate (4-6) Ondansetron HCl (Zofran) 4 mg IV Q8H PRN PRN Reason: Nausea And Vomiting Sodium Chloride (Sodium Chloride Flush Syringe 10 Ml) 10 ml IV BID [facility] Last Admin: 07/20/20 11:49 Dose: 10 ml Documented by: Sodium Chloride (Sodium Chloride Flush Syringe 10 Ml) 10 ml IV PRN PRN PRN Reason: LINE FLUSH Physical Examination - Constitutional Vitals: Vital Signs Temp Pulse Resp BP Pulse Ox 101.9 F H 82 24 155/92 95 07/20/20 11:25 07/20/20 11:25 07/20/20 11:25 07/20/20 11:25 07/20/20 11:25 Temperature -Last 24 Hours Temperature 101.9 F Temperature 99.0 F Temperature 97.9 F Temperature 98.3 F Results - Labs CBC & Chem 7: 07/19/20 04:37 07/19/20 04:37 Labs: Abnormal lab results 07/20/20 07/20/20 07/20/20 Range/Units 09:32 09:32 09:32 D-Dimer 8251.86 H (0-234) ng/mlDDU Ferritin 760.8 H (30.0-300.0) ng/mL C-Reactive Protein 19.50 H (0.00-1.30) mg/dL
--- NOTE | 2020-07-20 13:00 | Consultation ---
History of Present Illness - Reason for Consult Consult date: 07/20/20 R/o COVID Requesting physician: KATHLEEN GODWIN - History of Present Illness 69 y/o male with history of HTN, remote SAH hemorrhage, admitted on 07/18/2020 due to 3-day history of AMS. He was recently seen at an outside hospital and was diagnosed with worsening dementia. Unable to obtain history due to AMS. On arrival, temp 102.7, HR 120, O2 100%, BP 200/125. COVID PCR neg. CXR bilateral infiltrates. Initial CT head negative for acute process. CTA Chest demonstrates pulmonary embolus/saddle embolus. No evidence of right heart strain. Review of Systems: unable to obtain due to AMS/confusion Past History Past Medical History: hypertension, other (TIA) Past Surgical History: No surgical history Social history: no significant social history Family history: other (Unknown) Medications and Allergies Allergies Allergy/AdvReac Type Severity Reaction Status Date / Time No Known Allergies Allergy Unverified 04/08/17 14:49 Home Medications Medication Instructions Recorded Confirmed Last Taken Type No Known Home Medications [No 07/19/20 07/19/20 Unknown History Reported Home Medications] Active Meds: Active Medications Acetaminophen (Tylenol) 650 mg PO Q4H PRN PRN Reason: Pain MILD(1-3)/Fever >100.5/BRANTLEY Last Admin: 07/20/20 12:56 Dose: 650 mg Documented by: Azithromycin (Zithromax) 500 mg PO QDAY [facility] Last Admin: 07/20/20 12:56 Dose: 500 mg Documented by: Sodium Chloride (Nacl 0.9% 1000 Ml) 1,000 mls @ 75 mls/hr IV DIRECT [facility] Last Admin: 07/20/20 05:35 Dose: 75 mls/hr Documented by: Ceftriaxone Sodium (Rocephin/Ns 2 Gm/100 Ml) 2 gm in 100 mls @ 200 mls/hr IV Q24HR [facility]; Protocol Last Admin: 07/20/20 11:49 Dose: 200 mls/hr Documented by: Heparin Sodium/Sodium Chloride (Heparin/ 0.45% Nacl-25,000 Unit/500 Ml) 25,000 unit in 500 mls @ 29 mls/hr IV TITR [facility]; Protocol Labetalol HCl (Labetalol) 10 mg IV Q8HR PRN PRN Reason: Hypertension Last Admin: 07/20/20 05:34 Dose: 10 mg Documented by: Magnesium Hydroxide (Milk Of Magnesia) 30 ml PO Q4H PRN PRN Reason: Constipation Morphine Sulfate (Morphine) 2 mg IV Q4H PRN PRN Reason: Pain, Moderate (4-6) Ondansetron HCl (Zofran) 4 mg IV Q8H PRN PRN Reason: Nausea And Vomiting Sodium Chloride (Sodium Chloride Flush Syringe 10 Ml) 10 ml IV BID [facility] Last Admin: 07/20/20 11:49 Dose: 10 ml Documented by: Sodium Chloride (Sodium Chloride Flush Syringe 10 Ml) 10 ml IV PRN PRN PRN Reason: LINE FLUSH Physical Examination - Physical Exam Narrative exam: Physical Exam: Constitutional: Alert,confused. No acute distress Head, Ears, Nose: Normocephalic, atraumatic. External ears, nose normal Eyes: Conjunctivae/corneas clear. No icterus. No ptosis. Neck: Supple, no meningeal signs Cardiovascular: S1, S2 normal. Respiratory: Good air entry, clear to auscultation bilaterally GI: Soft, non-tender; bowel sounds normal. No peritoneal signs Musculoskeletal: no edema, deformities Skin: No rash or abscess Hem/Lymphatic: No palpable cervical or supraclavicular nodes. No lymphangitis Psych: no agitated Neurological: Awake, alert, confused - Constitutional Vitals: Vital Signs Temp Pulse Resp BP Pulse Ox 101.9 F H 82 24 155/92 95 07/20/20 11:25 07/20/20 11:25 07/20/20 11:25 07/20/20 11:25 07/20/20 11:25 Temperature -Last 24 Hours Temperature 101.9 F Temperature 99.0 F Temperature 97.9 F Temperature 98.3 F Results - Labs CBC & Chem 7: 07/19/20 04:37 07/19/20 04:37 Labs: Abnormal lab results 07/20/20 07/20/20 07/20/20 Range/Units 09:32 09:32 09:32 D-Dimer 8251.86 H (0-234) ng/mlDDU Ferritin 760.8 H (30.0-300.0) ng/mL C-Reactive Protein 19.50 H (0.00-1.30) mg/dL Assessment and Plan Cultures: Coronavirus PCR 07/18/2020: negative 07/18/2020 blood culture: A/P: 69 y/o male with history of HTA, remote SAH hemorrhage, admitted on 06/22 due to 3-day history of AMS: #Severe Sepsis:with fever, tachycardia, secondary to large PE +/- pneumonia. # Bilateral pneumonia: COVID test negative. Suspect false negative-COVID PCR or atypical CAP. Procal slightly up 0.3. Markers for COVID high -ferrtin 760, CRP19, LDH 346, Ddimer>10,000. #Large PE/saddle embolus. #Hypoxia: on NC #AMS: due to sepsis #Elevated LFTs: mild Recs: -Repeat COVID PCR -Anticoagulation per hospitalist -Continue azithromycin and ceftriaxone for now -Vascular on board -Obtain TTE Merlene Bernabe MD [facility] ([facility]) C: [phone] O: [phone] MD Derek Aceved[facility] ([facility]) M: [phone]
[2020-07-20] MEDS ORDERED: DEXAMETHASONE 2 MG TAB PO SCH (15:00)
[2020-07-20] MEDS: HEPARIN/ 0.45% NACL DRIP 25,000 UNIT/500 ML BAG IV SCH (15:11)
[2020-07-20 16:22] LABS: Hematocrit 33.8 % (35.5-45.6); Hemoglobin 11.3 gm/dl (11.8-15.2)
[2020-07-20 17:26] LABS: Partial Thromboplastin Time > 240.0 Sec. (24.2-36.6)
[2020-07-21 06:38] LABS: Basophils # (Auto) 0.1 K/mm3 (0.0-0.1); Basophils % (Auto) 0.8 % (0.0-1.8); Eosinophils # (Auto) 0.2 K/mm3 (0.0-0.4); Hematocrit 33.7 % (35.5-45.6); Hemoglobin 11.5 gm/dl (11.8-15.2); Lymphocytes # (Auto) 1.2 K/mm3 (1.2-5.4); Lymphocytes % (Auto) 19.2 % (13.4-35.0); Mean Corpuscular HGB Conc 34 % (32-34); Mean Corpuscular Volume 89 fl (84-94); Monocytes # (Auto) 0.5 K/mm3 (0.0-0.8); Monocytes % (Auto) 8.3 % (0.0-7.3); Platelet Count 168 K/mm3 (140-440); Red Blood Count 3.79 M/mm3 (3.65-5.03)
[2020-07-21 07:00] LABS: BUN/Creatinine Ratio 11; Blood Urea Nitrogen 10 mg/dL (9-20); Calcium 7.8 mg/dL (8.4-10.2); Hemolysis Index 2
[2020-07-21] MEDS ORDERED: hydrALAZINE 25 MG TAB PO ONE (08:19)
--- NOTE | 2020-07-21 08:29 | Cat Scan Report ---
CT head/brain wo con INDICATION / CLINICAL INFORMATION: 69 years Male; progressive mental decline. TECHNIQUE: Routine CT head without contrast. All CT scans at this location are performed using CT dos e reduction for ALARA by means of automated exposure control. COMPARISON: The study is compared to the previous CT of 07/18/2020. FINDINGS: BRAIN / INTRACRANIAL CONTENTS: There is continued extensive cerebral white matter disease most consis tent with microvascular angiopathy. 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 The above findings correlate with previous CT. There is continued calcification within the left basal ganglia. There is no CT ends of acute intracra nial hemorrhage or significant mass effect. The ventricular system is unchanged in size and configura tion. ORBITS: No significant abnormality of visualized orbits. SINUSES / MASTOIDS: No significant abnormality in the visualized paranasal sinuses or mastoid air jacklyn ls. CRANIOCERVICAL JUNCTION: No significant abnormality. ADDITIONAL FINDINGS: None. IMPRESSION: 1. There is continued extensive microvascular angiopathy as detailed above without CT ends of acute i ntracranial hemorrhage. Signer Name: Anthony Kwan MD Signed: 07/21/2020 8:25 AM Workstation Name: [id number]
[2020-07-21] MEDS: cefTRIAXone/NS 2 GM/100 ML 2 GM/100 ML BAG IV SCH (10:11)
[2020-07-21] MEDS: AZITHROMYCIN 250 MG TAB PO SCH (10:12)
[2020-07-21] MEDS: ACETAMINOPHEN 325 MG TAB PO PRN (10:12)
[2020-07-21] MEDS: HEPARIN/ 0.45% NACL DRIP 25,000 UNIT/500 ML BAG IV SCH (11:23)
--- NOTE | 2020-07-21 11:45 | Consultation ---
History of Present Illness Consult date: 07/21/20 Requesting physician: CHARLES HANCOCK Consult reason: other (PE) History of present illness: The pt is a 69 YO male with a reported history of remote SAH, TIA, HTN, dementia. He is previously unknown to our practice. He is pleasantly confused on evaluation and thus HPI is obtained per the chart. He presented for evaluation of AMS for 3 days prior to arrival. He was recently seen at an outside hospital and was diagnosed with worsening dementia. Initial CT head negative for acute process. Pt noted to have infiltrates on CXR, COVID-19 testing negative, and elevated D-dimer. CTA Chest positive for saddle pulmonary emblous. Per vascular team, pt is not a candidate for EKOS due to h/o SAH and progression in mental decline without etiology, cardiology consultation recommended. On evaluation, pt appears hemodynamically stable and denies any current complaints. Past History Past Medical History: hypertension, other (TIA) Past Surgical History: No surgical history Social history: no significant social history Family history: other (Unknown) Medications and Allergies Allergies Allergy/AdvReac Type Severity Reaction Status Date / Time No Known Allergies Allergy Unverified 04/08/17 14:49 Home Medications Medication Instructions Recorded Confirmed Last Taken Type No Known Home Medications [No 07/19/20 07/19/20 Unknown History Reported Home Medications] Active Meds: Active Medications Acetaminophen (Tylenol) 650 mg PO Q4H PRN PRN Reason: Pain MILD(1-3)/Fever >100.5/BRANTLEY Last Admin: 07/21/20 10:12 Dose: 650 mg Documented by: Azithromycin (Zithromax) 500 mg PO QDAY [facility] Last Admin: 07/21/20 10:12 Dose: 500 mg Documented by: Hydralazine HCl (Apresoline) 25 mg PO Q8HR [facility] Sodium Chloride (Nacl 0.9% 1000 Ml) 1,000 mls @ 75 mls/hr IV DIRECT [facility] Last Admin: 07/20/20 05:35 Dose: 75 mls/hr Documented by: Ceftriaxone Sodium (Rocephin/Ns 2 Gm/100 Ml) 2 gm in 100 mls @ 200 mls/hr IV Q24HR [facility]; Protocol Last Admin: 07/21/20 10:11 Dose: 200 mls/hr Documented by: Heparin Sodium/Sodium Chloride (Heparin/ 0.45% Nacl-25,000 Unit/500 Ml) 25,000 unit in 500 mls @ 29 mls/hr IV TITR [facility]; Protocol Last Admin: 07/21/20 11:23 Dose: 1,550 units/hr, 31 mls/hr Documented by: Labetalol HCl (Labetalol) 10 mg IV Q8HR PRN PRN Reason: Hypertension Last Admin: 07/21/20 06:20 Dose: 10 mg Documented by: Magnesium Hydroxide (Milk Of Magnesia) 30 ml PO Q4H PRN PRN Reason: Constipation Morphine Sulfate (Morphine) 2 mg IV Q4H PRN PRN Reason: Pain, Moderate (4-6) Ondansetron HCl (Zofran) 4 mg IV Q8H PRN PRN Reason: Nausea And Vomiting Sodium Chloride (Sodium Chloride Flush Syringe 10 Ml) 10 ml IV BID [facility] Last Admin: 07/21/20 10:14 Dose: 10 ml Documented by: Sodium Chloride (Sodium Chloride Flush Syringe 10 Ml) 10 ml IV PRN PRN PRN Reason: LINE FLUSH Review of Systems Cardiovascular: no chest pain, no shortness of breath, no dyspnea on exertion Physical Examination Vital Signs Temp Pulse Resp BP Pulse Ox 102.7 F H 120 H 16 200/125 100 07/18/20 17:08 07/18/20 17:08 07/18/20 17:08 07/18/20 17:08 07/18/20 17:08 General appearance: no acute distress HEENT: Positive: PERRL, Normocephaly, Mucus Membranes Moist Neck: Positive: neck supple, trachea midline Cardiac: Positive: Reg Rate and Rhythm, S1/S2 Lungs: Positive: Decreased Breath Sounds Neuro: Positive: Grossly Intact, Other (confused) Abdomen: Negative: Tender Skin: Negative: Rash Musculoskeletal: No Pain Extremities: Absent: edema Results 07/21/20 05:00 07/21/20 05:00 Coagulation 07/20/20 Range/Units 16:00 PT 15.4 H (12.2-14.9) Sec. INR 1.20 H (0.87-1.13) APTT > 240.0 H* (24.2-36.6) Sec. CBC 07/20/20 07/21/20 Range/Units 16:00 05:00 WBC 6.2 (4.5-11.0) K/mm3 RBC 3.79 (3.65-5.03) M/mm3 Hgb 11.3 L 11.5 L (11.8-15.2) gm/dl Hct 33.8 L 33.7 L (35.5-45.6) % Plt Count 158 168 (140-440) K/mm3 Lymph # 1.2 (1.2-5.4) K/mm3 Graham # 0.5 (0.0-0.8) K/mm3 Eos # 0.2 (0.0-0.4) K/mm3 Baso # 0.1 (0.0-0.1) K/mm3 Comprehensive Metabolic Panel 07/21/20 Range/Units 05:00 Sodium 142 (137-145) mmol/L Potassium 3.1 L (3.6-5.0) mmol/L Chloride 103.9 (98-107) mmol/L Carbon Dioxide 25 (22-30) mmol/L BUN 10 (9-20) mg/dL Creatinine 0.9 (0.8-1.3) mg/dL Glucose 102 H (75-100) mg/dL Calcium 7.8 L (8.4-10.2) mg/dL - Imaging and Cardiology Echo: pending EKG: report reviewed, image reviewed EKG interpretations - Telemetry EKG Rhythm: Sinus Tachycardia - EKG Sinus rhythms and dysrhythmias: sinus rhythm Assessment and Plan Currently stable cardiac status. No current clinical evidence of hemodynamic instability in setting of saddle PE. Initiate remote telemetry. Optimize anti- hypertensive regimen. Obtain echo. Will follow. The patient has been seen in conjunction with Dr. Balta Baez who agrees with the assessment and plan of care. - Patient Problems (1) Saddle pulmonary embolus Current Visit: Yes Status: Acute (2) AMS (altered mental status) Current Visit: Yes Status: Acute (3) Pneumonia Current Visit: Yes Status: Acute (4) Sepsis Current Visit: Yes Status: Acute (5) Dementia Current Visit: Yes Status: Chronic (6) HTN (hypertension) Current Visit: Yes Status: Chronic (7) History of subarachnoid hemorrhage Current Visit: Yes Status: Chronic
--- NOTE | 2020-07-21 15:08 | Progress Note ---
Assessment and Plan Cultures: Coronavirus PCR 07/18/2020: negative 07/18/2020 blood culture: A/P: 69 y/o male with history of HTA, remote SAH hemorrhage, admitted on 07/18/2020 due to 3-day history of AMS: #Severe Sepsis:with fever, tachycardia, secondary to large PE +/- pneumonia. #Bilateral pneumonia: COVID test negative. Suspect false negative-COVID PCR or atypical CAP. Procal slightly up 0.3. Markers for COVID high -ferrtin 760, CRP19, LDH 346, Ddimer>10,000. #Large PE/saddle embolus. #Hypoxia: on NC #AMS: due to sepsis #Elevated LFTs: mild Recs: -Repeat COVID PCR -Anticoagulation per hospitalist -Continue azithromycin and ceftriaxone for now. Complete 5 days. -Vascular on board -Obtain TTE Xander Cho MD [facility] ([facility]) M: [phone] O: [phone] F: [phone] Subjective Date of service: 07/21/20 Interval history: Febrile overnight to 101.1 degrees. White count normal. Currently on 2 L nasal cannula. Objective - Exam Narrative Exam: Constitutional: Alert,confused. No acute distress Head, Ears, Nose: Normocephalic, atraumatic. Eyes: Conjunctivae/corneas clear. No icterus. No ptosis. Neck: Supple, no meningeal signs Cardiovascular: S1, S2 normal. Respiratory: Good air entry, clear to auscultation bilaterally GI: Soft, non-tender; bowel sounds normal. No peritoneal signs Musculoskeletal: no edema, deformities Skin: No rash or abscess Hem/Lymphatic: No palpable cervical or supraclavicular nodes. No lymphangitis Psych: no agitated Neurological: Awake, alert, confused - Constitutional Vitals: Vital Signs Temp Pulse Resp BP Pulse Ox 98.6 F 108 H 20 144/91 93 07/21/20 12:21 07/21/20 14:59 07/21/20 14:59 07/21/20 12:21 07/21/20 14:59 Temperature -Last 24 Hours Temperature 98.6 F Temperature 99.5 F Temperature 101.1 F Temperature 99.4 F - Labs CBC & Chem 7: 07/21/20 05:00 07/21/20 05:00 Labs: Abnormal lab results 07/20/20 07/20/20 07/20/20 Range/Units 16:00 16:00 20:22 Hgb 11.3 L (11.8-15.2) gm/dl Hct 33.8 L (35.5-45.6) % [place] % (Auto) (0.0-7.3) % PT 15.4 H (12.2-14.9) Sec. INR 1.20 H (0.87-1.13) APTT > 240.0 H* (24.2-36.6) Sec. Heparin Anti-Xa Level 0.73 H (0.3-0.7) U.I./ml Potassium (3.6-5.0) mmol/L Glucose (75-100) mg/dL Calcium (8.4-10.2) mg/dL 07/21/20 07/21/20 07/21/20 Range/Units 05:00 05:00 05:00 Hgb 11.5 L (11.8-15.2) gm/dl Hct 33.7 L (35.5-45.6) % Amelia % (Auto) 8.3 H (0.0-7.3) % PT (12.2-14.9) Sec. INR (0.87-1.13) APTT (24.2-36.6) Sec. Heparin Anti-Xa Level 0.10 L (0.3-0.7) U.I./ml Potassium 3.1 L (3.6-5.0) mmol/L Glucose 102 H (75-100) mg/dL Calcium 7.8 L (8.4-10.2) mg/dL
--- NOTE | 2020-07-21 16:18 | Consultation ---
History of Present Illness - Reason for Consult Consult date: 07/22/20 Pulmonary embolism, submassive Requesting physician: CHARLES HANCOCK - History of Present Illness Patient is a 69-year-old male was brought in today for changes in mental status. Patient has not been his normal self over the past 3 days. He was recently seen at an outside hospital and was diagnosed with worsening dementia. His condition has gotten worse since being diagnosed with dementia and is currently become nonverbal. Most of the history was gotten from the ER physician as patient is unable to give me any good history at this time. Upon arrival in the emergency room patient was found to be tachycardic, he had a fever of about 102.7 F. Further work-up reveals bibasilar infiltrate on chest x-ray. CT scan of the head was within normal limits. Patient is being treated for pneumonia and will also be ruled out for possible COVID-19. [address] scan of the chest demonstrating submassive pulmonary embolism with right heart strain with right to left ventricular ratio greater than 1. Past History Past Medical History: hypertension, other (TIA) Past Surgical History: No surgical history Social history: no significant social history Family history: other (Unknown) Medications and Allergies Allergies Allergy/AdvReac Type Severity Reaction Status Date / Time No Known Allergies Allergy Unverified 04/08/17 14:49 Home Medications Medication Instructions Recorded Confirmed Last Taken Type No Known Home Medications [No 07/19/20 07/19/20 Unknown History Reported Home Medications] Active Meds: Active Medications Acetaminophen (Tylenol) 650 mg PO Q4H PRN PRN Reason: Pain MILD(1-3)/Fever >100.5/BRANTLEY Last Admin: 07/21/20 10:12 Dose: 650 mg Documented by: Azithromycin (Zithromax) 500 mg PO QDAY [facility] Last Admin: 07/21/20 10:12 Dose: 500 mg Documented by: Hydralazine HCl (Apresoline) 25 mg PO Q8HR [facility] Sodium Chloride (Nacl 0.9% 1000 Ml) 1,000 mls @ 75 mls/hr IV DIRECT [facility] Last Admin: 07/20/20 05:35 Dose: 75 mls/hr Documented by: Ceftriaxone Sodium (Rocephin/Ns 2 Gm/100 Ml) 2 gm in 100 mls @ 200 mls/hr IV Q24HR [facility]; Protocol Last Admin: 07/21/20 10:11 Dose: 200 mls/hr Documented by: Heparin Sodium/Sodium Chloride (Heparin/ 0.45% Nacl-25,000 Unit/500 Ml) 25,000 unit in 500 mls @ 29 mls/hr IV TITR [facility]; Protocol Last Admin: 07/21/20 11:23 Dose: 1,550 units/hr, 31 mls/hr Documented by: Labetalol HCl (Labetalol) 10 mg IV Q8HR PRN PRN Reason: Hypertension Last Admin: 07/21/20 06:20 Dose: 10 mg Documented by: Magnesium Hydroxide (Milk Of Magnesia) 30 ml PO Q4H PRN PRN Reason: Constipation Morphine Sulfate (Morphine) 2 mg IV Q4H PRN PRN Reason: Pain, Moderate (4-6) Ondansetron HCl (Zofran) 4 mg IV Q8H PRN PRN Reason: Nausea And Vomiting Sodium Chloride (Sodium Chloride Flush Syringe 10 Ml) 10 ml IV BID [facility] Last Admin: 07/21/20 10:14 Dose: 10 ml Documented by: Sodium Chloride (Sodium Chloride Flush Syringe 10 Ml) 10 ml IV PRN PRN PRN Reason: LINE FLUSH Review of Systems ROS unobtainable: due to mental status (memory issues) Exam - Constitutional Vitals: Temp Pulse Resp BP Pulse Ox 98.6 F 108 H 20 144/91 93 07/21/20 12:21 07/21/20 14:59 07/21/20 14:59 07/21/20 12:21 07/21/20 14:59 General appearance: Present: no acute distress, obese, other (Mild memory issues) - EENT ENT: hearing intact - Respiratory Respiratory effort: other (Minor labored breathing) - Extremities Extremities: pulses intact (Palpable pedal pulses), normal temperature, normal color Extremity abnormal: edema (Left lower extremity greater than right lower extremity swelling) - Psychiatric Psychiatric: appropriate mood/affect, cooperative Results - Labs CBC & Chem 7: 07/21/20 05:00 07/21/20 05:00 Labs: Abnormal lab results 07/20/20 07/20/20 07/20/20 Range/Units 16:00 16:00 20:22 Hgb 11.3 L (11.8-15.2) gm/dl Hct 33.8 L (35.5-45.6) % [place] % (Auto) (0.0-7.3) % PT 15.4 H (12.2-14.9) Sec. INR 1.20 H (0.87-1.13) APTT > 240.0 H* (24.2-36.6) Sec. Heparin Anti-Xa Level 0.73 H (0.3-0.7) U.I./ml Potassium (3.6-5.0) mmol/L Glucose (75-100) mg/dL Calcium (8.4-10.2) mg/dL 07/21/20 07/21/20 07/21/20 Range/Units 05:00 05:00 05:00 Hgb 11.5 L (11.8-15.2) gm/dl Hct 33.7 L (35.5-45.6) % [place] % (Auto) 8.3 H (0.0-7.3) % PT (12.2-14.9) Sec. INR (0.87-1.13) APTT (24.2-36.6) Sec. Heparin Anti-Xa Level 0.10 L (0.3-0.7) U.I./ml Potassium 3.1 L (3.6-5.0) mmol/L Glucose 102 H (75-100) mg/dL Calcium 7.8 L (8.4-10.2) mg/dL - Imaging and Cardiology CT scan - chest: report reviewed, image reviewed Assessment and Plan 69 year old male with submassive pulmonary embolism. Right heart strain noted on CT scan, but negative troponin and negative proBNP e levation. Patient's O2 sat on RA 94% and only desatured to 93% on ambulation when the nurse walked the patient. Although there is significant thrombus burden, patient has tolerated the thrombus very well. Overall risk stratification is submassive pulmonary embolism, intermediate-low. Recommend anticoagulation. If patient gets worse and the clinical situation changes, then can reconsider flowtriever mechanical thrombectomy. Not best candidate for EKOS due to history of subarachnoid hemorrhage. Patient will need anticoagulation for at least 6 months. If he cannot tolerate anticoagulation, then IVC filter can be placed and consideration for a lower dose of anticoagulation can be considered.
--- NOTE | 2020-07-21 17:16 | Event Note ---
Date: 07/21/20 I called patient's Ms. Lisbeth Linda at [phone] And discussed about patient's condition, test and imaging studies reports, newly diagnosed PE Treatment and discharge planning in detail, she has many questions I answered all her questions she verbalized understanding I encouraged her to call back with any questions or concerns Informed patient's nurse of the above conversation
--- NOTE | 2020-07-21 17:22 | Progress Note ---
Assessment and Plan Assessment and plan: --Covid-19 test Negative[07/19/20] --Elevated d dimers/large saddle thrombus on CTA chest Current Visit: Yes Status: Acute Plan to address problem: Anticoagulation with heparin drip per protocol Patient is hemodynamically stable, O2 sats more than 94% room air Evaluated by vascular/IR Not a candidate for EKOS thrombolysis [history of subarachnoid hemorrhage in the past] Lower extremity venous Doppler to rule out DVT Continue heparin drip Cardiology consult. Echocardiogram to rule out RV/LV strain -- Bilateral pneumonia Current Visit: Yes Status: Acute Plan to address problem: Total 5 days of empiric IV antibiotics. Cultures negative to date, ID following -- AMS (altered mental status) Current Visit: Yes Status: Acute Plan to address problem: Possibly secondary to the underlying pneumonia. Patient also has a baseline history of dementia. We will continue to monitor mental status. -- Suspected 2019 novel / Test negative Patient placed on isolation precautions. ID consulted,inflammatory markers high trend the markers -- DVT prophylaxis Current Visit: Yes Status: Acute Plan to address problem: Patient is on heparin drip -- Full code status Current Visit: Yes Status: Acute We will closely monitor the patient and adjust management as needed Follow consultants recommendations Today I discussed with patient's Ms. Lisbeth Linda. [phone] Patient's condition newly diagnosed pulmonary embolism, treatment and discharge planning Answered all her questions Possible discharge in 1 to 2 days if stable 07/20; elevated D-dimers, CTA chest large saddle thrombus, not a candidate for EKOS thrombolysis 07/21; patient is hemodynamically stable, on heparin drip, vascular interventional has evaluated No plans of EKOS thrombolysis, we will transition to Eliquis at discharge I discussed with patient's Ms. Lisbeth Linda, patient's condition treatment and discharge plan History Interval history: I have seen and examined the patient at the bedside this morning Patient's chart and medications reviewed CTA chest positive for large saddle thrombus, evaluated by IR vascular Not a candidate for EK OS thrombolysis due to history of subarachnoid hemorrhage in the past Patient is on heparin drip, feels better no new complaints Vital signs reviewed Hospitalist Physical - Constitutional Vitals: Temp Pulse Resp BP Pulse Ox 98.6 F 108 H 20 144/91 93 07/21/20 12:21 07/21/20 14:59 07/21/20 14:59 07/21/20 12:21 07/21/20 14:59 General appearance: Present: no acute distress, well-nourished - EENT Eyes: Present: PERRL, EOM intact - Neck Neck: Present: supple, normal ROM - Respiratory Respiratory effort: normal Respiratory: bilateral: diminished, rhonchi, negative: rales, wheezing - Cardiovascular Rhythm: regular Heart Sounds: Present: S1 & S2 - Extremities Extremities: no ischemia, No edema - Abdominal General gastrointestinal: soft, non-tender, non-distended, normal bowel sounds - Integumentary Integumentary: Present: clear, warm - Psychiatric Psychiatric: appropriate mood/affect, cooperative, other (Dementia) - Neurologic Neurologic: moves all extremities HEART Score - HEART Score Troponin: Troponin T < 0.010 ng/mL (0.00-0.029) 07/18/20 16:57 Results - Labs CBC & Chem 7: 07/21/20 05:00 07/21/20 05:00 Labs: Laboratory Last Values WBC 6.2 K/mm3 (4.5-11.0) 07/21/20 05:00 RBC 3.79 M/mm3 (3.65-5.03) 07/21/20 05:00 Hgb 11.5 gm/dl (11.8-15.2) L 07/21/20 05:00 Hct 33.7 % (35.5-45.6) L 07/21/20 05:00 MCV 89 fl (84-94) 07/21/20 05:00 MCH 30 pg (28-32) 07/21/20 05:00 MCHC 34 % (32-34) 07/21/20 05:00 RDW 14.0 % (13.2-15.2) 07/21/20 05:00 Plt Count 168 K/mm3 (140-440) 07/21/20 05:00 Lymph % (Auto) 19.2 % (13.4-35.0) 07/21/20 05:00 Gates % (Auto) 8.3 % (0.0-7.3) H 07/21/20 05:00 Eos % (Auto) 3.0 % (0.0-4.3) 07/21/20 05:00 Baso % (Auto) 0.8 % (0.0-1.8) 07/21/20 05:00 Lymph # 1.2 K/mm3 (1.2-5.4) 07/21/20 05:00 Gates # 0.5 K/mm3 (0.0-0.8) 07/21/20 05:00 Eos # 0.2 K/mm3 (0.0-0.4) 07/21/20 05:00 Baso # 0.1 K/mm3 (0.0-0.1) 07/21/20 05:00 Add Manual Diff Complete 07/18/20 18:03 Total Counted 100 07/18/20 18:03 Seg Neutrophils % 68.7 % (40.0-70.0) 07/21/20 05:00 Seg Neuts % (Manual) 84.0 % (40.0-70.0) H 07/18/20 18:03 Band Neutrophils % 0 % 07/18/20 18:03 Lymphocytes % (Manual) 7.0 % (13.4-35.0) L 07/18/20 18:03 Reactive Lymphs % (Man) 0 % 07/18/20 18:03 Monocytes % (Manual) 9.0 % (0.0-7.3) H 07/18/20 18:03 Eosinophils % (Manual) 0 % (0.0-4.3) 07/18/20 18:03 Basophils % (Manual) 0 % (0.0-1.8) 07/18/20 18:03 Metamyelocytes % 0 % 07/18/20 18:03 Myelocytes % 0 % 07/18/20 18:03 Promyelocytes % 0 % 07/18/20 18:03 Blast Cells % 0 % 07/18/20 18:03 Nucleated RBC % Not Reportable 07/18/20 18:03 Seg Neutrophils # 4.3 K/mm3 (1.8-7.7) 07/21/20 05:00 Seg Neutrophils # Man 11.4 K/mm3 (1.8-7.7) H 07/18/20 18:03 Band Neutrophils # 0.0 K/mm3 07/18/20 18:03 Lymphocytes # (Manual) 1.0 K/mm3 (1.2-5.4) L 07/18/20 18:03 Abs React Lymphs (Man) 0.0 K/mm3 07/18/20 18:03 Monocytes # (Manual) 1.2 K/mm3 (0.0-0.8) H 07/18/20 18:03 Eosinophils # (Manual) 0.0 K/mm3 (0.0-0.4) 07/18/20 18:03 Basophils # (Manual) 0.0 K/mm3 (0.0-0.1) 07/18/20 18:03 Metamyelocytes # 0.0 K/mm3 07/18/20 18:03 Myelocytes # 0.0 K/mm3 07/18/20 18:03 Promyelocytes # 0.0 K/mm3 07/18/20 18:03 Blast Cells # 0.0 K/mm3 07/18/20 18:03 WBC Morphology Not Reportable 07/18/20 18:03 Hypersegmented Neuts Not Reportable 07/18/20 18:03 Hyposegmented Neuts Not Reportable 07/18/20 18:03 Hypogranular Neuts Not Reportable 07/18/20 18:03 Smudge Cells Not Reportable 07/18/20 18:03 Toxic Granulation Not Reportable 07/18/20 18:03 Toxic Vacuolation Not Reportable 07/18/20 18:03 Dohle Bodies Not Reportable 07/18/20 18:03 Pelger-Huet Anomaly Not Reportable 07/18/20 18:03 Sarah Rods Not Reportable 07/18/20 18:03 Platelet Estimate Not Reportable 07/18/20 18:03 Clumped Platelets Not Reportable 07/18/20 18:03 Plt Clumps, EDTA Not Reportable 07/18/20 18:03 Large Platelets Not Reportable 07/18/20 18:03 Giant Platelets Not Reportable 07/18/20 18:03 Platelet Satelliting Not Reportable 07/18/20 18:03 Plt Morphology Comment Not Reportable 07/18/20 18:03 RBC Morphology Normal 07/18/20 18:03 Dimorphic RBCs Not Reportable 07/18/20 18:03 Polychromasia Not Reportable 07/18/20 18:03 Hypochromasia Not Reportable 07/18/20 18:03 Poikilocytosis Not Reportable 07/18/20 18:03 Anisocytosis Not Reportable 07/18/20 18:03 Microcytosis Not Reportable 07/18/20 18:03 Macrocytosis Not Reportable 07/18/20 18:03 Spherocytes Not Reportable 07/18/20 18:03 Pappenheimer Bodies Not Reportable 07/18/20 18:03 Sickle Cells Not Reportable 07/18/20 18:03 Target Cells Not Reportable 07/18/20 18:03 Tear Drop Cells Not Reportable 07/18/20 18:03 Ovalocytes Not Reportable 07/18/20 18:03 Helmet Cells Not Reportable 07/18/20 18:03 [place] Bodies Not Reportable 07/18/20 18:03 [place] Rings Not Reportable 07/18/20 18:03 Alicia Cells Not Reportable 07/18/20 18:03 Bite Cells Not Reportable 07/18/20 18:03 Crenated Cell Not Reportable 07/18/20 18:03 Elliptocytes Not Reportable 07/18/20 18:03 Acanthocytes (Spur) Not Reportable 07/18/20 18:03 Rouleaux Not Reportable 07/18/20 18:03 Hemoglobin C Crystals Not Reportable 07/18/20 18:03 Schistocytes Not Reportable 07/18/20 18:03 Malaria parasites Not Reportable 07/18/20 18:03 Clarence Bodies Not Reportable 07/18/20 18:03 Hem Pathologist Commnt No 07/18/20 18:03 PT 15.4 Sec. (12.2-14.9) H 07/20/20 16:00 INR 1.20 (0.87-1.13) H 07/20/20 16:00 APTT > 240.0 Sec. (24.2-36.6) H* 07/20/20 16:00 Thrombin Time 15.2 Sec. (15.1-19.6) 07/18/20 16:57 D-Dimer 8251.86 ng/mlDDU (0-234) H 07/20/20 09:32 Heparin Anti-Xa Level 0.43 U.I./ml (0.3-0.7) 07/21/20 13:19 Sodium 142 mmol/L (137-145) 07/21/20 05:00 Potassium 3.1 mmol/L (3.6-5.0) L 07/21/20 05:00 Chloride 103.9 mmol/L (98-107) 07/21/20 05:00 Carbon Dioxide 25 mmol/L (22-30) 07/21/20 05:00 Anion Gap 16 mmol/L 07/21/20 05:00 BUN 10 mg/dL (9-20) 07/21/20 05:00 Creatinine 0.9 mg/dL (0.8-1.3) 07/21/20 05:00 Estimated GFR > 60 ml/min 07/21/20 05:00 BUN/Creatinine Ratio 11 % 07/21/20 05:00 Glucose 102 mg/dL (75-100) H 07/21/20 05:00 POC Glucose 133 (70-105) H 07/18/20 17:37 Lactic Acid 1.30 mmol/L (0.7-2.0) 07/18/20 20:47 Calcium 7.8 mg/dL (8.4-10.2) L 07/21/20 05:00 Ferritin 760.8 ng/mL (30.0-300.0) H 07/20/20 09:32 Total Bilirubin 1.30 mg/dL (0.1-1.2) H 07/18/20 17:24 AST 45 units/L (5-40) H 07/18/20 17:24 ALT 27 units/L (7-56) 07/18/20 17:24 Alkaline Phosphatase 63 units/L (35-129) 07/18/20 17:24 Lactate Dehydrogenase 346 units/L (91-180) H 07/18/20 18:55 Troponin T < 0.010 ng/mL (0.00-0.029) 07/18/20 16:57 C-Reactive Protein 19.50 mg/dL (0.00-1.30) H 07/20/20 09:32 NT-Pro-B Natriuret Pep 181.6 pg/mL (0-900) 07/21/20 05:00 Total Protein 7.8 g/dL (6.3-8.2) 07/18/20 17:24 Albumin 4.0 g/dL (3.9-5) 07/18/20 17:24 Albumin/Globulin Ratio 1.1 % 07/18/20 17:24 Procalcitonin 0.32 ng/mL (<0.15) 07/18/20 18:55 Coronavirus (PCR) Negative (Negative) 07/19/20 Unknown Microbiology: Microbiology 07/18/20 17:30 Urine,Catheterized - Straight Catheter Urine Culture - Final NO GROWTH AFTER 48 HOURS 07/18/20 17:24 Peripheral/Venous Blood Culture - Preliminary NO GROWTH AFTER 48 HOURS 07/18/20 17:29 Peripheral/Venous Blood Culture - Preliminary NO GROWTH AFTER 48 HOURS Mckeon/IV: Voiding Method Incontinent IV Catheter Type [Right Peripheral IV Forearm] Active Medications - Current Medications Current Medications: Generic Name Dose Route Start Last Admin Trade Name Freq PRN Reason Stop Dose Admin Acetaminophen 650 mg 07/18/20 23:20 07/21/20 10:12 Tylenol PO 650 mg Q4H PRN Administration Pain MILD(1-3)/Fever >100.5/BRANTLEY Azithromycin 500 mg 07/21/20 10:00 07/21/20 10:12 Zithromax PO 500 mg QDAY DAREN Administration Hydralazine HCl 25 mg 07/21/20 14:00 Apresoline PO Q8HR DAREN Sodium Chloride 1,000 mls @ 75 mls/hr 07/18/20 23:30 07/20/20 05:35 Nacl 0.9% 1000 Ml IV 75 mls/hr DIRECT DAREN Administration Ceftriaxone Sodium 2 gm in 100 mls @ 200 mls/hr 07/19/20 10:00 07/21/20 10:11 Rocephin/Ns 2 Gm/100 Ml IV 200 mls/hr Q24HR DAREN Administration Protocol Heparin Sodium/Sodium Chloride 25,000 unit in 500 mls @ 29 mls/hr 07/20/20 12:00 07/21/20 11:23 Heparin/ 0.45% Nacl-25,000 Unit/500 Ml IV 1,550 units/hr TITR DAREN 31 mls/hr Administration Protocol 1,450 UNITS/HR Labetalol HCl 10 mg 07/20/20 05:16 07/21/20 06:20 Labetalol IV 10 mg Q8HR PRN Administration Hypertension Magnesium Hydroxide 30 ml 07/18/20 23:20 Milk Of Magnesia PO Q4H PRN Constipation Morphine Sulfate 2 mg 07/18/20 23:20 Morphine IV Q4H PRN Pain, Moderate (4-6) Ondansetron HCl 4 mg 07/18/20 23:20 Zofran IV Q8H PRN Nausea And Vomiting Sodium Chloride 10 ml 07/19/20 10:00 07/21/20 10:14 Sodium Chloride Flush Syringe 10 Ml IV 10 ml BID DAREN Administration Sodium Chloride 10 ml 07/18/20 23:20 Sodium Chloride Flush Syringe 10 Ml IV PRN PRN LINE FLUSH
[2020-07-21] MEDS: hydrALAZINE 25 MG TAB PO SCH ×2 (17:57→22:14)
--- NOTE | 2020-07-21 18:33 | Vascular Lab Report ---
DUPLEX DOPPLER LOWER EXTREMITY VEINS, BILATERAL INDICATION / CLINICAL INFORMATION: pulmonary embolism. TECHNIQUE: Duplex doppler imaging was performed through the veins of both lower extremities using venous anmol preethi and other maneuvers. COMPARISON: None available. FINDINGS: RIGHT COMMON FEMORAL VEIN: Negative. RIGHT FEMORAL VEIN: Negative. RIGHT POPLITEAL VEIN: Negative. RIGHT CALF VEINS: Negative. LEFT COMMON FEMORAL VEIN: Negative. LEFT FEMORAL VEIN: Echogenic material is present with lack of compressibility LEFT POPLITEAL VEIN: Echogenic material present with lack of compressibility LEFT CALF VEINS: Echogenic material is present with lack of compressibility involving distal calf vei ns ADDITIONAL FINDINGS: None. IMPRESSION: 1. The venous thrombosis left lower extremity as noted 2. Normal appearance right lower extremity the venous system Signer Name: Ramana Aguilar MD Signed: 07/21/2020 6:29 PM Workstation Name: [id number]
[2020-07-22] MEDS: hydrALAZINE 25 MG TAB PO SCH ×3 (05:33→22:55)
[2020-07-22 09:38] LABS: Hematocrit 34.1 % (35.5-45.6); Hemoglobin 11.7 gm/dl (11.8-15.2)
--- NOTE | 2020-07-22 10:38 | Progress Note ---
Assessment and Plan tte reviewed - normal EF, normal RV function, no pericardial effusion. Currently stable cardiac status. No current clinical evidence of hemodynamic instability in setting of saddle PE. Initiate remote telemetry. Optimize anti- hypertensive regimen. The patient has been seen in conjunction with Dr. Balta Baez who agrees with the assessment and plan of care. - Patient Problems (1) Saddle pulmonary embolus Current Visit: Yes Status: Acute Plan to address problem: per vascular team - Recommend anticoagulation. If patient gets worse and the clinical situation changes, then can reconsider flowtriever mechanical thrombectomy. Not best candidate for EKOS due to history of subarachnoid hemorrhage. (2) AMS (altered mental status) Current Visit: Yes Status: Acute (3) Pneumonia Current Visit: Yes Status: Acute (4) Sepsis Current Visit: Yes Status: Acute (5) Dementia Current Visit: Yes Status: Chronic (6) HTN (hypertension) Current Visit: Yes Status: Chronic (7) History of subarachnoid hemorrhage Current Visit: Yes Status: Chronic Subjective Date of service: 07/22/20 Principal diagnosis: PE Interval history: pt resting in bed, no current complaints. not on remote telemetry. Objective Last Vital Signs Temp 98.7 F 07/21/20 19:37 Pulse 72 07/22/20 09:00 Resp 22 07/21/20 22:11 BP 156/93 07/22/20 05:32 Pulse Ox 100 07/22/20 09:00 - Physical Examination General: No Apparent Distress HEENT: Positive: PERRL, Normocephaly, Mucus Membranes Moist Neck: Positive: neck supple, trachea midline Lungs: Positive: Decreased Breath Sounds Neuro: Positive: Grossly Intact, Other (confused) Abdomen: Negative: Tender Skin: Negative: Rash Musculoskeletal: No Pain Extremities: Absent: edema - Labs and Meds CBC 07/22/20 Range/Units 09:02 Hgb 11.7 L (11.8-15.2) gm/dl Hct 34.1 L (35.5-45.6) % Plt Count 189 (140-440) K/mm3 - Imaging and Cardiology EKG: report reviewed, image reviewed Echo: pending - EKG Sinus rhythms and dysrhythmias: sinus rhythm
[2020-07-22] MEDS: cefTRIAXone/NS 2 GM/100 ML 2 GM/100 ML BAG IV SCH (11:25)
[2020-07-22] MEDS: AZITHROMYCIN 250 MG TAB PO SCH (11:25)
[2020-07-22] MEDS: HEPARIN/ 0.45% NACL DRIP 25,000 UNIT/500 ML BAG IV SCH (11:26)
[2020-07-22] MEDS ORDERED: POTASSIUM CHLORIDE ER 20 MEQ TAB PO ONE (12:00)
--- NOTE | 2020-07-22 15:08 | Progress Note ---
Assessment and Plan Cultures: Coronavirus PCR 07/18/2020: negative 07/18/2020 blood culture: A/P: 69 y/o male with history of HTA, remote SAH hemorrhage, admitted on 07/18/2020 due to 3-day history of AMS: #Severe Sepsis:with fever, tachycardia, secondary to large PE +/- pneumonia. #Bilateral pneumonia: COVID test negative. Suspect false negative-COVID PCR or atypical CAP. Procal slightly up 0.3. Markers for COVID high -ferrtin 760, CRP19, LDH 346, Ddimer>10,000. #Large PE/saddle embolus. #Hypoxia: on NC #AMS: due to sepsis #Elevated LFTs: mild Recs: -Repeat COVID PCR. Awaiting -Anticoagulation per hospitalist -Continue azithromycin and ceftriaxone for now. Complete 5 days. -Vascular on board Xander Cho MD [facility] ([facility]) M: [phone] O: [phone] F: [phone] Subjective Date of service: 07/22/20 Principal diagnosis: PE Interval history: Afebrile overnight, normal white count. Minimal oxygen support Objective - Exam Narrative Exam: Constitutional: Alert,confused. No acute distress Head, Ears, Nose: Normocephalic, atraumatic. Eyes: Conjunctivae/corneas clear. No icterus. No ptosis. Neck: Supple, no meningeal signs Cardiovascular: S1, S2 normal. Respiratory: Good air entry, clear to auscultation bilaterally GI: Soft, non-tender; bowel sounds normal. No peritoneal signs Musculoskeletal: no edema, deformities Skin: No rash or abscess Hem/Lymphatic: No palpable cervical or supraclavicular nodes. No lymphangitis Psych: no agitated Neurological: Awake, alert, confused - Constitutional Vitals: Vital Signs Temp Pulse Resp BP Pulse Ox 98.7 F 63 18 170/88 95 07/22/20 13:28 07/22/20 13:28 07/22/20 13:28 07/22/20 13:28 07/22/20 13:28 Temperature -Last 24 Hours Temperature 98.7 F Temperature 98.7 F Temperature 97.4 F - Labs CBC & Chem 7: 07/22/20 09:02 07/21/20 05:00 Labs: Abnormal lab results 07/22/20 Range/Units 09:02 Hgb 11.7 L (11.8-15.2) gm/dl Hct 34.1 L (35.5-45.6) %
--- NOTE | 2020-07-22 19:06 | Progress Note ---
Assessment and Plan Assessment and plan: --Covid-19 test Negative[07/19/20] --Elevated d dimers/large saddle thrombus on CTA chest Current Visit: Yes Status: Acute Plan to address problem: Patient is on heparin drip per protocol Mild shortness of breath, on 2 L nasal cannula oxygen Evaluated by vascular/IR, Not a candidate for EKOS thrombolysis [history of subarachnoid hemorrhage in the past] --left lower extremity venous thrombosis Current Visit: Yes Status: Acute Plan to address problem: Continue heparin drip, will transition to oral Eliquis tomorrow if stable Patient has large saddle thrombus and left lower extremity DVT Very high risk critically ill patient, Consider IVC filter if needed IR/vascular, no indication for IVC filter at this point Cardiology evaluated,. Echocardiogram to rule out RV/LV strain --Sepsis secondary to bilateral pneumonia Current Visit: Yes Status: Acute Plan to address problem: Fever , leukocytosis , bilateral pneumonia, Continue total 5 days of IV antibiotics. Cultures negative to date, ID following -- AMS (altered mental status)/metabolic encephalopathy POA Current Visit: Yes Status: Acute Plan to address problem: Possibly secondary to the underlying pneumonia. Patient also has a baseline history of dementia. We will continue to monitor mental status. -- Suspected 2019 novel / Test negative Patient placed on isolation precautions. ID consulted,inflammatory markers high trend the markers -- DVT prophylaxis Current Visit: Yes Status: Acute Plan to address problem: Patient is on heparin drip -- Full code status Current Visit: Yes Status: Acute We will closely monitor the patient and adjust management as needed Follow consultants recommendations Today I discussed with patient's Ms. Lisbeth Linda. [phone] Patient's condition newly diagnosed pulmonary embolism, treatment and discharge planning Answered all her questions Possible discharge in 1 to 2 days if stable 07/20; elevated D-dimers, CTA chest large saddle thrombus, not a candidate for EKOS thrombolysis 07/21; patient is hemodynamically stable, on heparin drip, vascular interventional has evaluated No plans of EKOS thrombolysis, we will transition to Eliquis at discharge I discussed with patient's Ms. Lisbeth Linda, patient's condition treatme nt and discharge plan 07/22; patient has large saddle thrombus, left lower extremity DVT, high risk p atient Vascular following, no indication for IVC filter at this point, monitor, on heparin drip We will transition to oral anticoagulants tomorrow morning History Interval history: I have seen and examined the patient today at the bedside Patient feels slightly better complains of mild shortness of breath On nasal cannula oxygen Denies any chest pain or palpitation Vital signs reviewed Hospitalist Physical - Constitutional Vitals: Temp Pulse Resp BP Pulse Ox 99.0 F 74 18 151/106 96 07/22/20 17:30 07/22/20 17:30 07/22/20 17:30 07/22/20 17:30 07/22/20 17:30 General appearance: Present: no acute distress, obese, other (Mild memory is sues) - EENT Eyes: Present: PERRL, EOM intact - Neck Neck: Present: supple, normal ROM - Respiratory Respiratory effort: normal Respiratory: bilateral: diminished, rhonchi, negative: rales, wheezing - Cardiovascular Rhythm: regular Heart Sounds: Present: S1 & S2 - Extremities Extremities: no ischemia, pulses intact - Abdominal General gastrointestinal: soft, non-tender, non-distended, normal bowel sounds - Integumentary Integumentary: Present: clear, warm - Psychiatric Psychiatric: appropriate mood/affect, memory intact - Neurologic Neurologic: CNII-XII intact, moves all extremities HEART Score - HEART Score Troponin: Troponin T < 0.010 ng/mL (0.00-0.029) 07/18/20 16:57 Results - Labs CBC & Chem 7: 07/22/20 09:02 07/21/20 05:00 Labs: Laboratory Last Values WBC 6.2 K/mm3 (4.5-11.0) 07/21/20 05:00 RBC 3.79 M/mm3 (3.65-5.03) 07/21/20 05:00 Hgb 11.7 gm/dl (11.8-15.2) L 07/22/20 09:02 Hct 34.1 % (35.5-45.6) L 07/22/20 09:02 MCV 89 fl (84-94) 07/21/20 05:00 MCH 30 pg (28-32) 07/21/20 05:00 MCHC 34 % (32-34) 07/21/20 05:00 RDW 14.0 % (13.2-15.2) 07/21/20 05:00 Plt Count 189 K/mm3 (140-440) 07/22/20 09:02 Lymph % (Auto) 19.2 % (13.4-35.0) 07/21/20 05:00 Grand % (Auto) 8.3 % (0.0-7.3) H 07/21/20 05:00 Eos % (Auto) 3.0 % (0.0-4.3) 07/21/20 05:00 Baso % (Auto) 0.8 % (0.0-1.8) 07/21/20 05:00 Lymph # 1.2 K/mm3 (1.2-5.4) 07/21/20 05:00 Grand # 0.5 K/mm3 (0.0-0.8) 07/21/20 05:00 Eos # 0.2 K/mm3 (0.0-0.4) 07/21/20 05:00 Baso # 0.1 K/mm3 (0.0-0.1) 07/21/20 05:00 Add Manual Diff Complete 07/18/20 18:03 Total Counted 100 07/18/20 18:03 Seg Neutrophils % 68.7 % (40.0-70.0) 07/21/20 05:00 Seg Neuts % (Manual) 84.0 % (40.0-70.0) H 07/18/20 18:03 Band Neutrophils % 0 % 07/18/20 18:03 Lymphocytes % (Manual) 7.0 % (13.4-35.0) L 07/18/20 18:03 Reactive Lymphs % (Man) 0 % 07/18/20 18:03 Monocytes % (Manual) 9.0 % (0.0-7.3) H 07/18/20 18:03 Eosinophils % (Manual) 0 % (0.0-4.3) 07/18/20 18:03 Basophils % (Manual) 0 % (0.0-1.8) 07/18/20 18:03 Metamyelocytes % 0 % 07/18/20 18:03 Myelocytes % 0 % 07/18/20 18:03 Promyelocytes % 0 % 07/18/20 18:03 Blast Cells % 0 % 07/18/20 18:03 Nucleated RBC % Not Reportable 07/18/20 18:03 Seg Neutrophils # 4.3 K/mm3 (1.8-7.7) 07/21/20 05:00 Seg Neutrophils # Man 11.4 K/mm3 (1.8-7.7) H 07/18/20 18:03 Band Neutrophils # 0.0 K/mm3 07/18/20 18:03 Lymphocytes # (Manual) 1.0 K/mm3 (1.2-5.4) L 07/18/20 18:03 Abs React Lymphs (Man) 0.0 K/mm3 07/18/20 18:03 Monocytes # (Manual) 1.2 K/mm3 (0.0-0.8) H 07/18/20 18:03 Eosinophils # (Manual) 0.0 K/mm3 (0.0-0.4) 07/18/20 18:03 Basophils # (Manual) 0.0 K/mm3 (0.0-0.1) 07/18/20 18:03 Metamyelocytes # 0.0 K/mm3 07/18/20 18:03 Myelocytes # 0.0 K/mm3 07/18/20 18:03 Promyelocytes # 0.0 K/mm3 07/18/20 18:03 Blast Cells # 0.0 K/mm3 07/18/20 18:03 WBC Morphology Not Reportable 07/18/20 18:03 Hypersegmented Neuts Not Reportable 07/18/20 18:03 Hyposegmented Neuts Not Reportable 07/18/20 18:03 Hypogranular Neuts Not Reportable 07/18/20 18:03 Smudge Cells Not Reportable 07/18/20 18:03 Toxic Granulation Not Reportable 07/18/20 18:03 Toxic Vacuolation Not Reportable 07/18/20 18:03 Dohle Bodies Not Reportable 07/18/20 18:03 Pelger-Huet Anomaly Not Reportable 07/18/20 18:03 Sarah Rods Not Reportable 07/18/20 18:03 Platelet Estimate Not Reportable 07/18/20 18:03 Clumped Platelets Not Reportable 07/18/20 18:03 Plt Clumps, EDTA Not Reportable 07/18/20 18:03 Large Platelets Not Reportable 07/18/20 18:03 Giant Platelets Not Reportable 07/18/20 18:03 Platelet Satelliting Not Reportable 07/18/20 18:03 Plt Morphology Comment Not Reportable 07/18/20 18:03 RBC Morphology Normal 07/18/20 18:03 Dimorphic RBCs Not Reportable 07/18/20 18:03 Polychromasia Not Reportable 07/18/20 18:03 Hypochromasia Not Reportable 07/18/20 18:03 Poikilocytosis Not Reportable 07/18/20 18:03 Anisocytosis Not Reportable 07/18/20 18:03 Microcytosis Not Reportable 07/18/20 18:03 Macrocytosis Not Reportable 07/18/20 18:03 Spherocytes Not Reportable 07/18/20 18:03 Pappenheimer Bodies Not Reportable 07/18/20 18:03 Sickle Cells Not Reportable 07/18/20 18:03 Target Cells Not Reportable 07/18/20 18:03 Tear Drop Cells Not Reportable 07/18/20 18:03 Ovalocytes Not Reportable 07/18/20 18:03 Helmet Cells Not Reportable 07/18/20 18:03 [place] Bodies Not Reportable 07/18/20 18:03 [place] Rings Not Reportable 07/18/20 18:03 [place] Cells Not Reportable 07/18/20 18:03 Bite Cells Not Reportable 07/18/20 18:03 Crenated Cell Not Reportable 07/18/20 18:03 Elliptocytes Not Reportable 07/18/20 18:03 Acanthocytes (Spur) Not Reportable 07/18/20 18:03 Rouleaux Not Reportable 07/18/20 18:03 Hemoglobin C Crystals Not Reportable 07/18/20 18:03 Schistocytes Not Reportable 07/18/20 18:03 Malaria parasites Not Reportable 07/18/20 18:03 [place]rence Bodies Not Reportable 07/18/20 18:03 Hem Pathologist Commnt No 07/18/20 18:03 PT 15.4 Sec. (12.2-14.9) H 07/20/20 16:00 INR 1.20 (0.87-1.13) H 07/20/20 16:00 APTT > 240.0 Sec. (24.2-36.6) H* 07/20/20 16:00 Thrombin Time 15.2 Sec. (15.1-19.6) 07/18/20 16:57 D-Dimer 8251.86 ng/mlDDU (0-234) H 07/20/20 09:32 Heparin Anti-Xa Level 0.32 U.I./ml (0.3-0.7) 07/22/20 16:13 Sodium 142 mmol/L (137-145) 07/21/20 05:00 Potassium 3.1 mmol/L (3.6-5.0) L 07/21/20 05:00 Chloride 103.9 mmol/L (98-107) 07/21/20 05:00 Carbon Dioxide 25 mmol/L (22-30) 07/21/20 05:00 Anion Gap 16 mmol/L 07/21/20 05:00 BUN 10 mg/dL (9-20) 07/21/20 05:00 Creatinine 0.9 mg/dL (0.8-1.3) 07/21/20 05:00 Estimated GFR > 60 ml/min 07/21/20 05:00 BUN/Creatinine Ratio 11 % 07/21/20 05:00 Glucose 102 mg/dL (75-100) H 07/21/20 05:00 POC Glucose 133 (70-105) H 07/18/20 17:37 Lactic Acid 1.30 mmol/L (0.7-2.0) 07/18/20 20:47 Calcium 7.8 mg/dL (8.4-10.2) L 07/21/20 05:00 Ferritin 760.8 ng/mL (30.0-300.0) H 07/20/20 09:32 Total Bilirubin 1.30 mg/dL (0.1-1.2) H 07/18/20 17:24 AST 45 units/L (5-40) H 07/18/20 17:24 ALT 27 units/L (7-56) 07/18/20 17:24 Alkaline Phosphatase 63 units/L (35-129) 07/18/20 17:24 Lactate Dehydrogenase 346 units/L (91-180) H 07/18/20 18:55 Troponin T < 0.010 ng/mL (0.00-0.029) 07/18/20 16:57 C-Reactive Protein 19.50 mg/dL (0.00-1.30) H 07/20/20 09:32 NT-Pro-B Natriuret Pep 181.6 pg/mL (0-900) 07/21/20 05:00 Total Protein 7.8 g/dL (6.3-8.2) 07/18/20 17:24 Albumin 4.0 g/dL (3.9-5) 07/18/20 17:24 Albumin/Globulin Ratio 1.1 % 07/18/20 17:24 Procalcitonin 0.32 ng/mL (<0.15) 07/18/20 18:55 Coronavirus (PCR) Negative (Negative) 07/19/20 Unknown Microbiology: Microbiology 07/18/20 17:24 Peripheral/Venous Blood Culture - Preliminary NO GROWTH AFTER 4 DAYS 07/18/20 17:29 Peripheral/Venous Blood Culture - Preliminary NO GROWTH AFTER 4 DAYS Mckeon/IV: Voiding Method Incontinent IV Catheter Type [Left Hand] INT / Saline Lock IV Catheter Type [Right INT / Saline Lock Antecubital] IV Catheter Type [Right Peripheral IV Forearm] Active Medications - Current Medications Current Medications: Generic Name Dose Route Start Last Admin Trade Name Freq PRN Reason Stop Dose Admin Acetaminophen 650 mg 07/18/20 23:20 07/21/20 10:12 Tylenol PO 650 mg Q4H PRN Administration Pain MILD(1-3)/Fever >100.5/BRANTLEY Hydralazine HCl 50 mg 07/22/20 12:00 07/22/20 11:26 Apresoline PO 50 mg Q8HR DAREN Administration Sodium Chloride 1,000 mls @ 75 mls/hr 07/18/20 23:30 07/20/20 05:35 Nacl 0.9% 1000 Ml IV 75 mls/hr DIRECT DAREN Administration Heparin Sodium/Sodium Chloride 25,000 unit in 500 mls @ 29 mls/hr 07/20/20 12:00 07/22/20 16:54 Heparin/ 0.45% Nacl-25,000 Unit/500 Ml IV 1,550 units/hr TITR DAREN 31 mls/hr Titration Protocol 1,450 UNITS/HR Labetalol HCl 10 mg 07/20/20 05:16 07/22/20 05:32 Labetalol IV 10 mg Q8HR PRN Administration Hypertension Magnesium Hydroxide 30 ml 07/18/20 23:20 Milk Of Magnesia PO Q4H PRN Constipation Morphine Sulfate 2 mg 07/18/20 23:20 Morphine IV Q4H PRN Pain, Moderate (4-6) Ondansetron HCl 4 mg 07/18/20 23:20 Zofran IV Q8H PRN Nausea And Vomiting Sodium Chloride 10 ml 07/19/20 10:00 07/22/20 11:26 Sodium Chloride Flush Syringe 10 Ml IV 10 ml BID DAREN Administration Sodium Chloride 10 ml 07/18/20 23:20 Sodium Chloride Flush Syringe 10 Ml IV PRN PRN LINE FLUSH
[2020-07-22] MEDS: ACETAMINOPHEN 325 MG TAB PO PRN (22:54)
[2020-07-23] MEDS: hydrALAZINE 25 MG TAB PO SCH (05:29)
[2020-07-23] MEDS ORDERED: APIXABAN 5 MG TAB PO SCH (10:00)
[2020-07-23] MEDS ORDERED: LIDOCAINE-MPF (1%) 10 MG/1 ML VIAL 5 ML INFILTRATI ONE (10:05)
--- NOTE | 2020-07-23 10:05 | Discharge Summary ---
Providers - Providers Date of Admission: 07/18/20 21:29 Date of discharge: 07/23/20 Attending physician: CHARLES HANCOCK 07/18/20 17:08 Speech Therapy Evaluation and Treat [CONS] Stat Reason For Exam: alt mental status 07/18/20 23:20 Consult to Physician [CONS] Routine Comment: Consulting Provider: MARIZA COX Physician Instructions: Reason For Exam: PNEUMONIA, R/O COVID 19 07/20/20 11:42 Consult to Physician [CONS] Urgent Comment: Consulting Provider: BEATRIZ MENG Physician Instructions: Reason For Exam: PE/Large saddle thrombus 07/20/20 19:41 Consult to Physician [CONS] Routine Comment: Consulting Provider: JAMES LEY Physician Instructions: Reason For Exam: PE/saddle thrombus 07/21/20 17:16 Physical Therapy Evaluation and Treat [CONS] Routine Comment: Reason For Exam: General debility/history of recurrent strokes/PE Primary care physician: STRETCHING MACHINE OPERATOR Hospitalization Condition: Stable Disposition: DC/[place]-06 HOME UNDER HOME [facility] Time spent for discharge: 32 min Exam - Constitutional Vitals: Temp Pulse Resp BP Pulse Ox 98.8 F 108 H 20 157/78 97 07/23/20 05:28 07/23/20 08:33 07/23/20 05:26 07/23/20 05:27 07/23/20 05:28 Plan Activity: advance as tolerated, fall precautions Diet: other (Cardiac diet/mechanical soft as tolerated) Additional Instructions: If you have worsening symptoms contact MD or go to emergency room. If you notice any bleeding stop Eliquis and contact MD. Advised to see private cable strander in 2 weeks. Advised to see private embossograph operator in 2 weeks Follow up with: PRIMARY MD MALICK [Primary Care Provider] - 7 Days MATTHEW RUTHERFORD MD [Staff Physician] - 14 Days LULU VELAZQUEZ MD [Staff Physician] - 14 Days Prescriptions: Apixaban [Eliquis] 2 tab PO Q12HR #26 tablet Apixaban [Eliquis] 5 mg PO Q12HR #60 tablet Hydralazine HCl 50 mg PO TID #90 tablet levoFLOXacin [Levaquin TAB] 500 mg PO QDAY #5 tablet Albuterol Mdi (or & Nicu Only) [ProAir HFA Inhaler] 2 puff IH QID PRN #8.5 gram PRN Reason: Shortness Of Breath
--- NOTE | 2020-07-23 10:09 | Progress Note ---
Assessment and Plan tte reviewed - normal EF, normal RV function, no pericardial effusion. Currently stable cardiac status. No current clinical evidence of hemodynamic instability in setting of saddle PE. Pt initiated on Eliquis per primary. Nothing further to add from cardiac perspective at this time. Pt may discharge from cardiology standpoint. Recommend pt follow up in our office with Dr. Balta Baez within 2 weeks of discharge ([phone]). The patient has been seen in conjunction with Dr. Balta Baez who agrees with the assessment and plan of care. - Patient Problems (1) Saddle pulmonary embolus Current Visit: Yes Status: Acute Plan to address problem: per vascular team - Recommend anticoagulation. If patient gets worse and the clinical situation changes, then can reconsider flowtriever mechanical thrombectomy. Not best candidate for EKOS due to history of subarachnoid hemorrhage. (2) AMS (altered mental status) Current Visit: Yes Status: Acute (3) Pneumonia Current Visit: Yes Status: Acute (4) Sepsis Current Visit: Yes Status: Acute (5) Dementia Current Visit: Yes Status: Chronic (6) HTN (hypertension) Current Visit: Yes Status: Chronic (7) History of subarachnoid hemorrhage Current Visit: Yes Status: Chronic Subjective Date of service: 07/23/20 Principal diagnosis: PE Interval history: pt sitting up in chair, no current complaints. not on remote telemetry. Objective Last Vital Signs Temp 98.8 F 07/23/20 05:28 Pulse 108 H 07/23/20 08:33 Resp 20 07/23/20 05:26 BP 157/78 07/23/20 05:27 Pulse Ox 97 07/23/20 05:28 - Physical Examination General: No Apparent Distress HEENT: Positive: PERRL, Normocephaly, Mucus Membranes Moist Neck: Positive: neck supple, trachea midline Cardiac: Positive: Reg Rate and Rhythm, S1/S2 Lungs: Positive: Decreased Breath Sounds Neuro: Positive: Grossly Intact, Other (confused) Abdomen: Negative: Tender Skin: Negative: Rash Musculoskeletal: No Pain Extremities: Absent: edema - Imaging and Cardiology EKG: report reviewed, image reviewed Echo: pending - EKG Sinus rhythms and dysrhythmias: sinus rhythm
[2020-07-23] MEDS ORDERED: AZITHROMYCIN 250 MG TAB PO SCH (11:00)
[2020-07-23] MEDS ORDERED: cefTRIAXone/NS 2 GM/100 ML 2 GM/100 ML BAG IV SCH (11:00)
[2020-07-23 14:19] VITALS: BP 164/96
--- NOTE | 2020-07-23 14:25 | Progress Note ---
Assessment and Plan Cultures: Coronavirus PCR 07/18/2020: negative 07/18/2020 blood culture: A/P: 69 y/o male with history of HTA, remote SAH hemorrhage, admitted on 07/18/2020 due to 3-day history of AMS: #Severe Sepsis:with fever, tachycardia, secondary to large PE +/- pneumonia. #Bilateral pneumonia: COVID test negative. Suspect false negative-COVID PCR or atypical CAP. Procal slightly up 0.3. Markers for COVID high -ferrtin 760, CRP19, LDH 346, Ddimer>10,000. #Large PE/saddle embolus. #Hypoxia: on NC #AMS: due to sepsis #Elevated LFTs: mild Recs: -Anticoagulation per hospitalist -Continue azithromycin and ceftriaxone for now. Complete 5 days, today's last day -Vascular on board -Okay for discharge from infectious disease perspective Xander Cho MD [facility] ([facility]) M: [phone] O: [phone] F: [phone] Subjective Date of service: 07/23/20 Principal diagnosis: PE Interval history: Febrile overnight to 100.5 degrees normal white count. Objective - Exam Narrative Exam: Constitutional: Alert,confused. No acute distress Head, Ears, Nose: Normocephalic, atraumatic. Eyes: Conjunctivae/corneas clear. No icterus. No ptosis. Neck: Supple, no meningeal signs Cardiovascular: S1, S2 normal. Respiratory: Good air entry, clear to auscultation bilaterally GI: Soft, non-tender; bowel sounds normal. No peritoneal signs Musculoskeletal: no edema, deformities Skin: No rash or abscess Hem/Lymphatic: No palpable cervical or supraclavicular nodes. No lymphangitis Psych: no agitated Neurological: Awake, alert, confused - Constitutional Vitals: Vital Signs Temp Pulse Resp BP Pulse Ox 98.8 F 62 18 164/96 96 07/23/20 11:34 07/23/20 11:34 07/23/20 11:34 07/23/20 11:34 07/23/20 11:34 Temperature -Last 24 Hours Temperature 98.8 F Temperature 98.8 F Temperature 100.5 F Temperature 99.0 F - Labs CBC & Chem 7: 07/22/20 09:02 07/21/20 05:00
[2020-07-30] MEDS ORDERED: APIXABAN 5 MG TAB PO SCH (10:00)
== END 2020-07-23 17:15 | disposition home health service (06) | DRG 871 ==
LOC: ED 16:44 → 3A 21:29
PROVIDERS: ADMIT Internal Medicine Geriatric Medicine; ATTEND Internal Medicine
DX: A41.9 Sepsis, unspecified organism (principal); J18.9 Pneumonia, unspecified organism; G93.41 Metabolic encephalopathy; I26.99 Other pulmonary embolism without acute cor pulmonale; I82.402 Acute embolism and thrombosis of unspecified deep veins of left lower extremity; I10 Essential (primary) hypertension; R79.1 Abnormal coagulation profile; R65.20 Severe sepsis without septic shock; R79.89 Other specified abnormal findings of blood chemistry; F03.90 Unspecified dementia, unspecified severity, without behavioral disturbance, psychotic disturbance, mood disturbance, and anxiety; Z86.73 Personal history of transient ischemic attack (TIA), and cerebral infarction without residual deficits; Z20.828 Contact with and (suspected) exposure to other viral communicable diseases
CPT/HCPCS: 36415; 70450; 71045; 71275; 80048; 80053; 82140; 82728; 82947; 82962; 83615; 83880; 84145; 84484; 85007; 85014; 85018; 85025; 85049; 85379; 85520; 85610; 85670; 85730; 86140; 87040; 87086; 93005; 93306; 93970; 94760; G0378; J0456; J0696; J1644; J7030; J7050; Q9967; U0003-CS

== ENCOUNTER 2021-10-31 13:51 | Emergency (ER) | payer MEDICARE ==
--- NOTE | 2021-10-31 14:47 | Emergency Department Report ---
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 She says that he first complained of his left eyelid vision becoming completely blurry at about 10 AM. She says they have been out of his Eliquis for the past 5 days and were not able to fill it until this morning but he has not yet taken his dose. Other than the left eye vision complaint he has no other complaints according to the although details of the HPI are difficult to obtain given the patient's dementia and clinical condition peer ED Past Medical Hx - Past Medical History Hx Hypertension: Yes Hx CVA: Yes Hx Pulmonary Embolism: Yes Additional medical history: Dementia - Social History Smoking Status: Never Smoker - Medications Home Medications: Home Medications Medication Instructions Recorded Confirmed Last Taken Type Apixaban [Eliquis] 5 mg PO QDAY 10/31/21 10/31/21 Unknown History Valsartan [Diovan] 160 mg PO QDAY 10/31/21 10/31/21 Unknown History ED Review of Systems ROS: Stated complaint: VISUAL PROBLEMS Other details as noted in HPI Comment: Unobtainable due to pts medical conditions Physical Exam - Physical Exam Vital Signs: Vital Signs 10/31/21 14:10 Temperature 98.3 F Pulse Rate 63 Respiratory 18 Rate Blood Pressure 178/100 [Right] O2 Sat by Pulse 96 Oximetry Physical Exam: GENERAL: Well developed and well nourished. No acute distress HEAD: Normocephalic. No obvious signs of trauma. ENT: Moist mucous membranes. EYES: Extraocular movements are intact. Pupils are equal round and reactive to light bilaterally. Difficult to evaluate visual quijano due to dementia although he has grossly normal vision in the right eye and in the left eye sees only blurry shapes. NECK: Supple. Full ROM is intact. Trachea is midline. LUNGS: Nonlabored breathing. Equal chest rise bilaterally. Clear to auscultation bilaterally. CARDIOVASCULAR: Regular rate and rhythm. No murmurs or rubs. VASCULAR: Cap refill < 2 seconds ABDOMEN: Abdomen is soft and nondistended. There is no significant tenderness, guarding or rebound. SKIN: Skin is warm and dry NEURO: Patient is awake and alert. At baseline mental status per who is at the bedside. environmental studies program director II-XII grossly intact. No focal deficits. Normal motor and sensory exam throughout. Normal speech. NIH stroke scale score of 2 MUSCULOSKELETAL: No obvious deformities. No significant tenderness. Normal ROM throughout. BACK/SPINE: No midline tenderness or step-offs of the C/T/L spine. No costovertebral angle tenderness. ED Course Vital Signs 10/31/21 14:10 Temperature 98.3 F Pulse Rate 63 Respiratory 18 Rate Blood Pressure 178/100 [Right] O2 Sat by Pulse 96 Oximetry ED Medical Decision Making - Lab Data Result diagrams: 10/31/21 14:40 10/31/21 14:40 Labs 10/31/21 10/31/21 10/31/21 14:30 14:40 14:40 WBC 4.7 RBC 4.33 Hgb 12.8 Hct 39.2 MCV 91 MCH 30 MCHC 33 RDW 14.1 Plt Count 163 Lymph % (Auto) 33.0 Perry % (Auto) 7.6 H Eos % (Auto) 1.7 Baso % (Auto) 0.6 Lymph # (Auto) 1.5 Perry # (Auto) 0.4 Eos # (Auto) 0.1 Baso # (Auto) 0.0 Seg Neutrophils % 57.1 Seg Neutrophils # 2.7 PT 13.5 INR 0.93 APTT 31.4 Thrombin Time 17.4 Sodium Potassium Chloride Carbon Dioxide Anion Gap BUN Creatinine Estimated GFR BUN/Creatinine Ratio Glucose POC Glucose 89 Calcium Total Bilirubin AST ALT Alkaline Phosphatase Total Creatine Kinase CK-MB (CK-2) CK-MB (CK-2) Rel Index Troponin T Total Protein Albumin Albumin/Globulin Ratio Plasma/Serum Alcohol 10/31/21 10/31/21 14:40 14:40 WBC RBC Hgb Hct MCV MCH MCHC RDW Plt Count Lymph % (Auto) Perry % (Auto) Eos % (Auto) Baso % (Auto) Lymph # (Auto) Perry # (Auto) Eos # (Auto) Baso # (Auto) Seg Neutrophils % Seg Neutrophils # PT INR APTT Thrombin Time Sodium 140 Potassium 3.5 L Chloride 102.6 Carbon Dioxide 25 Anion Gap 16 BUN 10 Creatinine 1.0 Estimated GFR > 60 BUN/Creatinine Ratio 10 Glucose 91 POC Glucose Calcium 8.8 Total Bilirubin 0.80 AST 16 ALT 8 Alkaline Phosphatase 50 Total Creatine Kinase 137 CK-MB (CK-2) 1.2 CK-MB (CK-2) Rel Index 0.8 Troponin T < 0.010 Total Protein 7.1 Albumin 4.0 Albumin/Globulin Ratio 1.3 Plasma/Serum Alcohol < 0.01 - EKG Data -: EKG Interpreted by Pa - EKG Data 10/31/21 14:48 Normal sinus rhythm. Left axis deviation. Left anterior fascicular block. Anterior Q waves in leads V1 through V3. No significant ST segment or T wave abnormalities. - Radiology Data Radiology results: report reviewed - Medical Decision Making 71-year-old male with history of dementia prior stroke with no residual deficit and saddle PE on Eliquis presents with his due to monocular left vision loss started today. He has been out of his Eliquis for the past 5 days. His last known normal time was 10 AM today. At that time he complained of loss of vision in his left eye which is painless. He is afebrile and with normal vital signs other than elevated blood pressure. On assessment, the patient has the ability only to see blurry shapes on the left with grossly normal vision in the right eye. His dementia makes it difficult to evaluate visual quijano. No pain with extraocular movements. The remainder of his neurologic exam is within normal limits. His NIH stroke scale score is 2. Stroke alert was initiated with full set of labs and CT of the head as well as CTA of the head and neck to assess for large vessel occlusion. At 3 [address] with [address] Mcnulty of teleneurology regarding the case. He recommends no TPA and CTA of the head and neck Noncon head CT reveals no acute abnormalities. CTA of the head and neck revealed no acute abnormalities. Labs have resulted and reveal no significant leukocytosis or anemia. Creatinine is within normal range and there are no significant electrolyte abnormalities. I spoke again with Dr. Mcnulty of teleneurology regarding the case. He states that given that the patient likely has a primary ophthalmologic issue and we do not have ophthalmology he recommends transfer to a stroke center which has this capability At 5:04 PM, the patient is accepted by Dr. Sewell at [facility]. All this was discussed with the patient and his expressed understanding agreement with the plan of care. Critical Care Time: Yes Critical care time in (mins) excluding proc time.: 40 Critical care attestation.: If time is entered above; I have spent that time in minutes in the direct care of this critically ill patient, excluding procedure time. Critical care time was spent in the evaluation/assessment, work-up, and management of acute stroke requiring stroke alert and consultation with specialist as well as frequent reevaluation reassessment. ED Disposition Clinical Impression: Stroke, Blurry vision, left eye, Saddle pulmonary embolus Disposition: SHORT TERM HOSPITAL Is pt being admited?: No Referrals: PRIMARY CARE, [Primary Care Provider] - 3-5 Days - Assessment Assessment Interval: Baseline - Level of Consciousness 1a. Level of Consciousness: alert/keenly responsive - LOC Questions 1b. LOC Questions: answers both correctly - LOC Command 1c. LOC Commands: performs tasks correctly - Best Gaze 2. Best Gaze: normal - Visual 3. Visual: complete hemianopia - Facial Palsy 4. Facial Palsy: normal symmetrical movement - Motor Arm 5a. Motor Arm Left: no drift 5b. Motor Arm Right: no drift - Motor Leg 6a. Motor Leg Left: no drift 6b. Motor Leg Right: no drift - Limb Ataxia 7. Limb Ataxia: absent - Sensory 8. Sensory: normal - Best Language 9. Best Language: no aphasia - Dysarthria 10. Dysarthria: normal - Extinction and Inattention 11. Extinction/Inattention: no abnormality - Scoring Total Score: 2 Stroke Severity: Minor Stroke
[2021-10-31 14:58] LABS: Basophils % (Auto) 0.6 % (0.0-1.8); Eosinophils # (Auto) 0.1 K/mm3 (0.0-0.4); Eosinophils % (Auto) 1.7 % (0.0-4.3); Hematocrit 39.2 % (35.5-45.6); Hemoglobin 12.8 gm/dl (11.8-15.2); Lymphocytes # (Auto) 1.5 K/mm3 (1.2-5.4); Mean Corpuscular HGB Conc 33 % (32-34); Mean Corpuscular Volume 91 fl (84-94); Monocytes # (Auto) 0.4 K/mm3 (0.0-0.8); Monocytes % (Auto) 7.6 % (0.0-7.3); Platelet Count 163 K/mm3 (140-440); Red Blood Count 4.33 M/mm3 (3.65-5.03); Red Cell Distribution Width 14.1 % (13.2-15.2)
--- NOTE | 2021-10-31 15:02 | Consultation ---
History of Present Illness - Reason for Consult Consult date: 10/31/21 - History of Present Illness [facility] Consult Note # Demographics Consult Type: Acute Stroke Level 1 (0-4.5 hrs) Patient Location: Emergency Room First Name: BEATRIZ Last Name: CODY Date of : 1950 Age: 71 Gender: Male Facility: [facility] Time of Initial Page ( Time): 10/31/2021, 14:27 Time of Return Call ( Time): 10/31/2021, 14:28 # HPI History: 71yo man who had blurry vision since 10AM today. There is no focal weakness. He states that his left eye is fully blurry. No numbness. # Scores Time of exam and NIHSS (): 10/31/2021, 14:58 Level of Consciousness 1a: [0] = Alert; keenly responsive LOC Questions 1b: [0] = Answers both questions correctly LOC Commands 1c: [0] = Performs both tasks correctly Best Gaze 2: [0] = Normal Visual 3: [1] = Partial hemianopia Facial Palsy 4: [0] = Normal symmetrical movements Motor Arm Left 5a: [0] = No drift Motor Arm Right 5b: [0] = No drift Motor Leg Left 6a: [0] = No drift Motor Leg Right 6b: [0] = No drift Limb Ataxia 7: [0] = Absent Sensory 8: [0] = Normal Best Language 9: [0] = No aphasia Dysarthria 10: [0] = Normal Extinction and Inattention 11: [0] = No abnormality NIHSS Total: 1 # Exam Vitals: vital signs reviewed # H-FH-SH Past Medical History: dementia stroke PE Medications: NOAC not taking for 5 days. # Assessment Impression: Other vision changes, doubt stroke. likely primary eye pathology # Plan Thrombolytic/Intervention: NOT IV Thrombolysis or IA Intervention candidate Thrombolytic Exclusion: > 4.5 hours Intraarterial Exclusion: clinically not consistent with stroke Target Blood Pressure: SBP < 220 Labs: ESR Imaging: (urgency: STAT): CT Angiogram Head and CT Angiogram Neck Imaging: (urgency: routine): MRI Brain without contrast Medication: aspirin 81 mg daily DVT Prophylaxis: SCD chemical DVT prophylaxis Other: would not pursue stroke work-up if MRI is negative I have discussed my recommendations with the referring provider Disposition: admit Medications and Allergies Allergies Allergy/AdvReac Type Severity Reaction Status Date / Time No Known Allergies Allergy Verified 10/31/21 13:57 Home Medications Medication Instructions Recorded Confirmed Last Taken Type Albuterol Mdi (or & Nicu Only) 2 puff IH QID PRN #8.5 gram 07/23/20 Unknown Rx [ProAir HFA Inhaler] Apixaban [Eliquis] 2 tab PO Q12HR #26 tablet 07/23/20 Unknown Rx Apixaban [Eliquis] 5 mg PO Q12HR #60 tablet 07/23/20 Unknown Rx Hydralazine HCl 50 mg PO TID #90 tablet 07/23/20 Unknown Rx levoFLOXacin [Levaquin TAB] 500 mg PO QDAY #5 tablet 07/23/20 Unknown Rx Exam - Constitutional Vitals: Temp Pulse Resp BP Pulse Ox 98.3 F 63 18 178/100 96 10/31/21 14:10 10/31/21 14:10 10/31/21 14:10 10/31/21 14:10 10/31/21 14:10 Results - Labs CBC & Chem 7: 10/31/21 14:40 Labs: Abnormal lab results 10/31/21 Range/Units 14:40 Bowie % (Auto) 7.6 H (0.0-7.3) %
[2021-10-31 15:08] LABS: INR 0.93 (0.87-1.13); Partial Thromboplastin Time 31.4 Sec. (24.2-36.6); Thrombin Time 17.4 Sec. (15.1-19.6)
--- NOTE | 2021-10-31 15:13 | Cat Scan Report ---
NONENHANCED CT SCAN OF THE HEAD: INDICATION / CLINICAL INFORMATION: 71 years Male; Stroke symptoms. TECHNIQUE: Routine CT head without contrast. All CT scans at this location are performed using CT dos e reduction for ALARA by means of automated exposure control. COMPARISON: 07/21/2020 FINDINGS: BRAIN / INTRACRANIAL CONTENTS: No intracerebral hemorrhage or stroke mimics No acute hemorrhage, mass effect, midline shift, hydrocephalus, or acute, large territorial infarct. Chronic lacunae in both basal ganglia: Confluent periventricular low-attenuation areas due to chroni c small vessel disease CRANIOCERVICAL JUNCTION: No significant abnormality. ORBITS: No significant abnormality of visualized orbits. SINUSES / MASTOIDS: No significant abnormality of the visualized paranasal sinuses or mastoid air jacklyn ls. ADDITIONAL FINDINGS: None. IMPRESSION: No acute focal parenchymal lesion in the brain Signer Name: Thad Villalobos MD Signed: 10/31/2021 3:09 PM Workstation Name: [id number]
[2021-10-31 15:15] LABS: Creatine Kinase MB 1.2 ng/mL (0.0-4.0)
[2021-10-31 15:17] LABS: Alanine Aminotransferase 8 units/L (7-56); BUN/Creatinine Ratio 10; Blood Urea Nitrogen 10 mg/dL (9-20); Calcium 8.8 mg/dL (8.4-10.2); Hemolysis Index 6
--- NOTE | 2021-10-31 15:55 | XRay Report ---
CHEST 1 VIEW 10/31/2021 3:22 PM INDICATION / CLINICAL INFORMATION: stroke. COMPARISON: 07/18/2020 FINDINGS: SUPPORT DEVICES: None. HEART / MEDIASTINUM: No significant abnormality. LUNGS / PLEURA: No significant pulmonary or pleural abnormality. No pneumothorax. ADDITIONAL FINDINGS: No significant additional findings. IMPRESSION: 1. No acute findings. Signer Name: Isidro Montemayor MD Signed: 10/31/2021 3:51 PM Workstation Name: [id number]
--- NOTE | 2021-10-31 16:21 | Cat Scan Report ---
CTA NECK WITH CONTRAST HISTORY: "Stroke symptoms" COMPARISON: None. TECHNIQUE: Routine CTA of the neck was performed. 3-D/MIP reformats were postprocessed. Percentage s tenosis is determined by direct quantitative measurements of diseased internal carotid artery diamete r compared with normal distal internal carotid artery reference segments or by criteria similar to NA SCET where applicable.All CT scans at this location are performed using CT dose reduction for ALARA b y means of automated exposure control CONTRAST: 100 ml of Omnipaque 350 FINDINGS: Aortic arch: No significant abnormality. Cervical vertebral arteries: No significant abnormality. Common carotid arteries: No significant abnormality. Carotid bifurcations: Normal Cervical internal carotid arteries: No significant abnormality. Tortuous Additional findings: None. IMPRESSION: 1. No significant abnormality. Signer Name: Thad Villalobos MD Signed: 10/31/2021 4:17 PM Workstation Name: [id number]
--- NOTE | 2021-10-31 16:26 | Cat Scan Report ---
CTA HEAD WITH CONTRAST HISTORY: "Strokelike symptoms COMPARISON: None. TECHNIQUE: Routine non-contrast CT Head, CTA of the head and post-contrast CT Head are performed. 3-D /MIP reformats postprocessed. All CT scans at this location are performed using CT dose reduction for ALARA by means of automated exposure control CONTRAST: 100 ml of Omnipaque 350 FINDINGS: CTA Head: Intracranial vertebral arteries: No significant abnormality. Basilar artery: No significant abnormality. Posterior cerebral arteries: Patent bilaterally; focal areas of narrowing in the P1 and P2 segments o n the right side posterior communicating artery contributes to left posterior cerebral artery Intracranial internal carotid arteries: No significant abnormality. Anterior cerebral arteries: No significant abnormality. Middle cerebral arteries: Right middle cerebral artery normal; less than 50% narrowing of the distal left middle cerebral artery Dural venous sinuses:Not optimally opacified. No significant abnormality. Additional findings: None. IMPRESSION: No large vessel occlusion Signer Name: Thad Villalobos MD Signed: 10/31/2021 4:22 PM Workstation Name: [id number]
[2021-10-31 22:21] VITALS: BP 164/142
--- NOTE | 2021-11-03 14:16 | Electrocardiograph Report ---
[facility] Test Date: 2021-10-31 Test Time: 14:19:00 Pat Name: BEATRIZ ROSS Department: Room: Gender: M [employer] Hel[employer]: AARON : 1950 Requested By: ALEXANDRE RODRIGUEZ Order Number: [id number] Reading MD: Tanja Chaudhary Measurements Intervals [place] Rate: 60 P: 33 MN: 228 QRS: -51 QRSD: 108 T: 93 QT: 425 QTc: 426 Interpretive Statements Sinus rhythm Prolonged MN interval LAD, consider left anterior fascicular block Left ventricular hypertrophy Anterior Q waves, possibly due to LVH No previous ECG available for comparison Electronically Signed On 11-03-2021 14:16:09 EST by Tanja Chaudhary
== END 2021-10-31 22:05 | disposition short-term general hospital (02) ==
LOC: ED 13:51
DX: I63.9 Cerebral infarction, unspecified (principal); H53.8 Other visual disturbances; I26.92 Saddle embolus of pulmonary artery without acute cor pulmonale; I10 Essential (primary) hypertension
CPT/HCPCS: 36415; 70450; 70496; 70498; 71045; 80053; 82550; 82553; 82962; 84484; 85025; 85610; 85670; 85730; 93005; 99291; Q9967; 80320; 99285; G0480